=== PATIENT | female | born 1955 | race Caucasian/White ===

== ENCOUNTER 2024-01-20 10:04 | Outpatient (AMB) | payer MEDICARE, SELFPAY ==
--- NOTE | 2024-01-20 10:08 | MHC.OFFVIS ---
Vital Signs 01/20/24 10:12 Height 5 ft 3 in Weight 141 lb BMI 25.0 BP 159/77 H Blood Pressure Location Lt brachial Position Sitting Pulse 92 Pulse Source Pulse Oximeter Pulse Oximetry (%) 99 Oxygen Delivery Method Room Air Intake Visit Reasons: Lumbar Disc Disease Intake Note: Pain today 610 Screen Print Operator Required: Yes Screen Print Operator Language: Kenyan Screen Print Operator Services: Screen Print Operator Present Screen Print Operator Name: Provider speaks Kenyan. Accompanied by: Daughter Allergies No Known Allergies Allergy (Verified 01/20/24 10:12) HPI HPI Lumbar Disc Disease: Details: Patient is a very pleasant 68 years old Kenyan-speaking female with history of right-sided lumbar radiculopathy, scleroderma, arthritis, fatigue, facet arthropathy of lumbar spine, lumbar degenerative disc disease, right shoulder pain, chronic right hip pain, presents today for initial evaluation of right hip pain with radiation into right groin and right lower extremity. Denies any recent or past trauma, injury, or falls. [facility] and arthritis with cardiac, pulmonary, GI and musculoskeletal involvement and has been on long-term treatment with Humira, methotrexate and prednisone. Patient denies previous spine or hip surgery, reports history of right hip/GTB and right shoulder cortisone injections with minimal pain relief. Right hip pain has been progressively getting worse and is associated with locking and catching sensations especially when getting up or changing positions. She also has chronic low back pain and and thoracic pain with bony enlargements in her mid and lower thoracic and lower spine which patient attributes to scleroderma and arthritis. Low back pain radiates to right buttock and lateral hip with positive provocative testing for right sacroiliac joint pain. Patient recently completed lumbar spine MRI which we reviewed today and this is noted below. Right hip pain is worse upon getting up at night and morning which she rates at 10/10 and least severe in the afternoon after taking her medications. She denies any fever, chills, malaise, burning or paresthesia sensations, foot drop, bladder or bowel dysfunction, or saddle anesthesia. Reports right lower extremity episodic weakness due to right hip and groin pain. Patient also reports significant varicose veins in her lower extremities with pain and inflammation and is interested in vascular evaluation. She reports frequent cold sensation in her forefoot and toes with numbness and intermittent tingling sensations. Patient is concerned for systemic calcifications and requests comprehensive chemistry lab work including magnesium and calcium. Location: Right hip radiates into right groin and RLE anteriorly Duration: Chronic pain syndrome, hip pain worsening >3 months Characteristics of symptom or complaint: Stabbing, aching, cutting, tiring, spreading, radiating, sharp Aggravating or associated factors: Movement, standing up, getting up, changing positions, walking Relieving factors: Sitting, rest, Ibuprofen, Tylenol, lidocaine and diclofenac topicals Treatment: HEP, TENS unit, herbal/homeopathic therapies PFSH Medical History (Updated 01/20/24 @ 20:51 by SARA Agee) Arthritis Scleroderma GERD (gastroesophageal reflux disease) Hypertension Paroxysmal A-fib Lumbar disc disease Right lumbar radiculopathy Surgical History (Updated 01/20/24 @ 20:58 by SARA Agee) History of uterine suspension procedure (~2017) H/O: hysterectomy Social History Alcohol intake: never Patient Tobacco Use Status: Never used Tobacco Review of Systems Const All systems reviewed & are unremarkable except as noted in HPI and below Physical Exam Vital Signs: Last Vital Signs Pulse 92 01/20/24 10:12 BP 159/77 H 01/20/24 10:12 Pulse Ox 99 01/20/24 10:12 Oxygen Delivery Method Room Air 01/20/24 10:12 BMI result Body Mass Index 25.0 General: Appears afebrile. Alert and oriented. Mood and affect appropriate. Follows and participates in conversation appropriately. Respiratory effort is unlabored. No cough. Able to transition from sit to stand unassisted. Ambulates with bilaterally normal heel strike and toe off, reports RLE intermittent weakness due to right hip pain. General: Yes no CVA tenderness Back/Spine/Pelvis Other: Limited thoracolumbar ROM due to pain and arthritis. Bony enlargements noted midline mid-lower and lumbar spine. Lumbar extension and forward flexion reproduces [id number] pain. Demonstrates 5/5 left and 4/5 right strength of quadriceps bilaterally as well as flexion/dorsiflexion of bilateral feet against resistance. 2+ pedal pulses bilaterally. Seated straight leg rise with dorsiflexion negative bilaterally. Diminished patellar and achilles reflexes bilaterally. Facet loading test positive bilaterally. Jeison sign positive on the right, Osmany?s, Gaenslen, Pelvic compression and Stinchfield tests are positive on the right. Moderate right groin pain with I/E right hip rotations. +RASHEED and +FADIR tests with reproduction of moderate-severe right hip and right groin pain. Valsalva maneuver negative. Back: no CVA tenderness Cervical Spine: cervical ROM normal, cervical muscular tenderness and No Cervical spine tenderness Thoracic/Lumbar Spine: No Thoracic/lumbar spine scar(s), Lasegue's sign negative, straight leg raise negative bilaterally, pain with thoraco-lumbar ROM, paraspinal muscle tenderness, thoraco-lumbar ROM limited, thoracic spinal tenderness (mid thoracic) and lumbar spinal tenderness (L4-S1) Pelvis: buttock tenderness on the right and no sciatic notch tenderness Sacroiliac joints: on the right tender to palpation and on the left nontender Results Reviewed Results Reviewed: MR SPINE LUMBAR without CONTRAST 12/16/23 [facility] INDICATION: Right sided lumbar radiculopathy. FINDINGS: Normal lumbar alignment is demonstrated. Vertebral heights are well maintained. Bone marrow signal is within normal limits, and no suspicious osseous lesion is identified. Conus medullaris is unremarkable. Paraspinal soft tissues and visualized portions of the abdomen and pelvis are unremarkable. At L1-2 there is no significant disc herniation or protrusion. No central canal or neural foraminal stenosis is demonstrated. At L2-3 there is no significant disc herniation or protrusion. No central canal or neural foraminal stenosis is demonstrated. At L3-4 there is no significant disc herniation or protrusion. No central canal or neural foraminal stenosis is demonstrated. At L4-5 there is a small central disc bulge and bilateral facet hypertrophy. No central canal or neuroforaminal stenosis is demonstrated. At L5-S1 there is a small broad-based disc bulge and bilateral facet hypertrophy. No central canal or neural foraminal stenosis is demonstrated. IMPRESSION: At L4-5 and L5-S1, there are small disc bulges and bilateral facet hypertrophy, but no significant central canal stenosis or nerve root compromise at these or at any level. CT SCAN OF THE CHEST WITH CONTRAST 06/21/2008 [facility] CLINICAL HISTORY: Scleroderma rule out pulmonary pathology. IMPRESSION: Mildly increased basilar interstitial lung markings and small parenchymal nodules as described many of which are pleural based. Findings would be consistent with the clinical history of scleroderma which is associated with interstitial fibrosis and can demonstrate micronodules as well. Short term interval follow-up examination in three months is recommended to reassess. Scan should also include a high resolution scan of the lung parenchyma. Moderate pericardial effusion. Left ventricular enlargement and left ventricular hypertrophy as described. Assessment & Plan Assessment & Plan (1) Right hip pain: Code(s): M25.551 - Pain in right hip Category: Medical (2) Calcific tendinitis of right hip: Code(s): M65.251 - Calcific tendinitis, right thigh Category: Medical (3) Thoracic back pain: Code(s): M54.6 - Pain in thoracic spine Category: Medical (4) Chronic pain syndrome: Code(s): G89.4 - Chronic pain syndrome Category: Medical (5) Varicose veins of lower extremity with inflammation, bilateral: Code(s): I83.11 - Varicose veins of right lower extremity with inflammation; I83.12 - Varicose veins of left lower extremity with inflammation Category: Medical Plan: Vascular Referral placed to Dr. Elizabeth's office for further evaluation and treatment. Plan Patient presents with right hip and groin pain consistent with osteoarthritis, calcific tendinitis and concern for labrum tear. Will proceed with right hip MRI to rule out labrum tear and assess degree of degenerative changes. Patient request open MRI-will sent it to [facility]. Thoracic spine imaging to assess degree of degenerative changes, any subluxation, listhesis, compression fractures or pars defects. Will send medical request to [facility] for most recent right hip x-ray. Patient reports previous right hip results are consistent with mild osteoarthritis and calcific tendinitis. We discussed formal physical therapy, analgesics and intra-articular steroid hip injections under fluoroscopy guidance. Lab work orders provided for comprehensive chemistry profile per patient request. All questions and concerns have been answered and patient and family agrees with the treatment plan. Follow-up for MRI/Xray results and sooner as needed. Orders: Orders Magnesium Today G89.4 - Chronic pain syndrome Calcium Today G89.4 - Chronic pain syndrome MR hip RT wo/w con Today M25.551 - Pain in right hip, M65.251 - Calcific tendinitis, right thigh XR thoracic spine 3V Today M54.6 - Pain in thoracic spine Comprehensive Met. Panel Today G89.4 - Chronic pain syndrome Referrals Vascular Surgery Referral I83.11 - Varicose veins of right lower extremity with inflammation, I83.12 - Varicose veins of left lower extremity with inflammation Coding Level of Care Code New Pt Level 4 (86267) Diagnoses Right hip pain M25.551 Calcific tendinitis of right hip M65.251 Thoracic back pain M54.6 Chronic pain syndrome G89.4 Varicose veins of lower extremity with inflammation, bilateral I83.11; I83.12
[2024-01-20 10:12] VITALS: BP 159/77; PULSE 92; O2SAT 99; BMI 25.0
== END 2024-01-20 11:22 | disposition home or self-care (01) ==
PROVIDERS: PCP Physician Assistant; Referring Provider Physician Assistant; Visit Provider Nurse Practitioner Family
DX: M25.551 Pain in right hip (principal); M65.251 Calcific tendinitis, right thigh; M54.6 Pain in thoracic spine; G89.4 Chronic pain syndrome; I83.11 Varicose veins of right lower extremity with inflammation; I83.12 Varicose veins of left lower extremity with inflammation
CPT/HCPCS: 99204

== ENCOUNTER 2024-01-20 10:04 | Outpatient (REF) | payer MEDICARE, SELFPAY ==
--- NOTE | ~2024-01-20 | XR_ITS ---
EXAMINATION: XR THORACIC SPINE CLINICAL INFORMATION: Back pain COMPARISON: None available. TECHNIQUE: 3 views of the thoracic spine were obtained. FINDINGS: Mild superior compression deformity of an upper thoracic vertebral body, possibly T6. This appears chronic. [id number] multilevel degenerative disc disease. Normal thoracic kyphosis and alignment. Extensive atherosclerotic calcifications of the aortic arch. XR/XR thoracic spine 3V IMPRESSION: Chronic appearing mild superior endplate fracture deformity of T6. Mild to moderate multilevel degenerative disc disease throughout the thoracic spine. Electronically signed by: Ramesh Norman MD 01/25/2024 02:03 PM EDT
[2024-01-20 12:48] LABS: Alanine Aminotransferase 19 U/L (0-31); Albumin Level 3.6 g/dL (3.5-5.0); Alkaline Phosphatase 73 U/L (39-117); Anion Gap 11 (12-20); Aspartate Amino Transferase 23 U/L (5-31); Bilirubin Total 0.6 mg/dL (0.0-1.0); Blood Urea Nitrogen 12 mg/dL (9-16); Calcium 9.3 mg/dL (8.4-10.2); Carbon Dioxide 28 mmol/L (22-29); Chloride 101 mmol/L (96-108); Estimated Glomerular Filt Rate > 60; Glucose Random 80 mg/dL (60-115); Magnesium 1.9 mg/dL (1.6-2.6); Potassium 3.8 mmol/L (3.3-5.1); Sodium 136 mmol/L (135-145); Total Protein 8.4 g/dL (6.5-8.0)
== END 2024-01-20 10:05 | disposition home or self-care (01) ==
LOC: HO.XRAY 10:04
PROVIDERS: PCP Physician Assistant; Referring Provider Physician Assistant; Visit Provider Nurse Practitioner Family
DX: G89.4 Chronic pain syndrome (principal); M54.6 Pain in thoracic spine; M25.551 Pain in right hip; M65.251 Calcific tendinitis, right thigh; I83.11 Varicose veins of right lower extremity with inflammation; I83.12 Varicose veins of left lower extremity with inflammation
CPT/HCPCS: 36415; 72072; 80053; 83735; 99202

== ENCOUNTER 2024-04-13 10:18 | Outpatient (AMB) | payer MEDICARE, SELFPAY ==
--- NOTE | 2024-04-13 10:20 | A.OFFVIS_ITS ---
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 States they started over 30 yrs ago. States she has itching, burning and has large clusters of VV that are hard. 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 Complaints include pain over varicosities, swelling of lower extremities, cramping, fatigue, and heaviness of the lower extremities. It has been affecting there daily activities including walking. It is noted more so in left leg. She reports it all began with the of her 2nd child nearly 45 years ago and has progressively gotten worse over the last year 2. Patient denies any previous venous surgery or injections. Patient denies any history of DVT/ PE. Patient denies any history of phlebitis. Trial of compression includes - [id number] but are quite painful for her. They now present for vascular evaluation regarding their varicose veins. [facility] Medical History Arthritis Scleroderma GERD (gastroesophageal reflux disease) Hypertension Paroxysmal A-fib Lumbar disc disease Right lumbar radiculopathy Surgical History History of uterine suspension procedure (~2017) H/O: hysterectomy Social History Alcohol intake: never Patient Tobacco Use Status: Never used Tobacco Review of Systems Const Reports as per HPI ENT Reports no additional complaints Card Denies chest pain, Denies chest pain at rest and Denies chest pain with activity Resp Denies chest congestion and Denies cough GI Reports no additional complaints Musc Details: pain over varicosities, aching of lower extremities, swelling, cramping, heaviness and tiredness, itching Denies abnormal gait Skin/Breast Reports pruritus and Denies wounds Neuro Reports no additional complaints and Denies abnormal gait Psych Denies no additional complaints Physical Exam Vital Signs: BMI result Body Mass Index 25.0 Const General: cooperative, healthy appearing and comfortable Orientation/consciousness: oriented to person, oriented to place and oriented to time Neck Carotids: no bruits Chest Chest palpation & inspection: normal inspection of the chest and normal palpation of entire chest wall Resp Effort & Inspection: normal respiratory effort and able to speak in complete sentences Cardio Rate: regular rate Heart sounds: S1 normal heart sound present and S2 normal heart sound present Peripheral pulses: Peripheral pulses 2+ throughout GI Inspection: Yes normal to inspection Skin Other: +2 edema, large rope-like varicosities greater than 4 mm bilateral calf CEAP Classification C4 - skin color changes Ep - Etiology Primary As - superficial veins P - reflux General skin exam: dry skin Neuro General: oriented to person, oriented to place and oriented to time Extrem Right lower extremity: full ROM, normal capillary refill and edema Left lower extremity: full ROM, normal capillary refill and edema Psych Mental Status: mental status grossly normal Assessment & Plan Assessment & Plan (1) Varicose veins of left lower extremity with inflammation: Code(s): I83.12 - Varicose veins of left lower extremity with inflammation Category: Medical Plan: In short, the patient has evidence of venous insufficiency. I have discussed the pathophysiology with the patient. In addition I have provided informational material regarding venous disease to the patient. We have discussed conservative measures including compression, elevation, and exercise. I have also provided a handout regarding appropriate use of compression stockings and where to purchase good compression stockings as well. I have taken the liberty of ordering venous insufficiency testing with the patient. They will follow up with me after testing. The patient had an opportunity to ask questions regarding the treatment plan. All questions were answered. Imaging studies, laboratory studies and physical exam results were discussed and reviewed in detail. No major barriers to understanding were identified. The patient expressed understanding and agreement with the above treatment plan. The patient is aware they should contact our office by phone for worsening of the current condition or the appearance of new symptoms. Thank you for allowing me to participate in the vascular care of this patient. If you have any questions or concerns regarding the treatment for the above condition please do not hesitate to contact me. The office telephone contact is [phone]. This note is constructed using voice recognition software. While every effort has been made to ensure accuracy, museum guide errors may have been included. Thank you for allowing me to participate in the care of your patient. Yours sincerely, Alexis Elizabeth MD, FACS, R.P.V.I. Orders: Orders US venous duplex LE BI 1 Week I83.12 - Varicose veins of left lower extremity with inflammation Coding Level of Care Code New Pt Level 4 (09167) Diagnoses Varicose veins of left lower extremity with inflammation I83.12
[2024-04-13 10:21] VITALS: BMI 25.0
== END 2024-04-13 10:54 | disposition home or self-care (01) ==
PROVIDERS: PCP Physician Assistant; Visit Provider Surgery Vascular Surgery
DX: I83.12 Varicose veins of left lower extremity with inflammation (principal)
CPT/HCPCS: 99204

== ENCOUNTER → 2024-04-13 10:18 | Outpatient (BNVA) | payer MEDICARE, SELFPAY | PROVIDERS: PCP Physician Assistant; Visit Provider Surgery Vascular Surgery | DX: I83.12 Varicose veins of left lower extremity with inflammation (principal) | CPT/HCPCS: 99202 ==

== ENCOUNTER 2024-05-11 10:11 | Outpatient (REF) | payer MEDICARE, SELFPAY ==
--- OUTSIDE RECORDS SUMMARY | 2024-05-11 10:17 | XMS_ITS | Continuity of Care Document ---
Author Organization [facility] Address [address] [facility] [place] [address]- Care Team Providers Care Rating Specialist Name Role Phone Christina España Primary Care Physician Encounter 04/27/24 - 05/04/24 [facility] [address], [address] [place] [address]- Attending Physician: Venancio DIAMOND MD, Antonio Admitting Physician: Venancio DIAMOND MD, Antonio Referring Physician: Venancio DIAMOND MD, Antonio Encounter Type: OutPatient One Time Allergies, Adverse Reactions, Alerts Substance Criticality Severity Reaction Reaction Severity Status Plaquenil Active Medications amLODIPine 5 mg oral tablet 0.5, By Mouth, Daily, # 30 tablet, Refills 0, Maintenance, 05/11/21 9:26:00 PM EST, Partial fill upon patient request if the prescription is for a schedule II opioid drug. Start Date: 05/11/21 Status: Ordered Quantity: 30.0 Unit: tablet Repeat number: 1 apixaban 5 mg oral tablet 1 tablet = 5 mg, By Mouth, 2 times a day, # 60 tablet, 6 Refills, Maintenance, 08/20/22 3:57:00 PM EDT, Tablet, [id number], Partial fill upon patient request if the prescription is for a schedule II opioid drug., 163, cm, 08/20/22 15:40:00 EDT, Height, 68.5, kg, 05/12/21 4:12:00 EST, Dry Weight Start Date: 08/20/22 Status: Ordered Quantity: 60.0 Unit: tablet Repeat number: 7 Estradiol 0 Refills, Maintenance, 06/21/23 4:13:00 PM EST, Partial fill upon patient request if the prescription is for a schedule II opioid drug. Start Date: 06/21/23 Status: Ordered Repeat number: 1 famotidine 20 mg oral tablet Refills 0, Maintenance, 06/21/23 4:13:00 PM EST, Partial fill upon patient request if the prescription is for a schedule II opioid drug. Start Date: 06/21/23 Status: Ordered Repeat number: 1 fluconazole 100 mg oral tablet 0 Refills, Maintenance, 06/21/23 4:12:00 PM EST, Partial fill upon patient request if the prescription is for a schedule II opioid drug. Start Date: 06/21/23 Status: Ordered Repeat number: 1 Humira = 40 mg, Subcutaneous Infusion, 0 Refills, Maintenance, 12/26/21 2:07:00 PM EDT, Partial fill upon patient request if the prescription is for a schedule II opioid drug. Start Date: 12/26/21 Status: Ordered Repeat number: 1 levoFLOXacin 500 mg oral tablet 1 tablet = 500 mg, By Mouth, Every 24 hours, # 10 tablet, 0 Refills, Maintenance, 04/13/24 11:23:00AM EST, Tablet, Partial fill upon patient request if the prescription is for a schedule II opioid drug. Start Date: 04/13/24 Stop Date: 04/23/24 Status: Ordered Quantity: 10.0 Unit: tablet Repeat number: 1 methotrexate 25 mg/mL injectable solution 0 Refills, Maintenance, 10/14/23 11:25:00 AM EDT, Partial fill upon patient request if the prescription is for a schedule II opioid drug. Start Date: 10/14/23 Status: Ordered Repeat number: 1 metoclopramide 5 mg oral tablet 0 Refills, Maintenance, 06/21/23 4:12:00 PM EST, Partial fill upon patient request if the prescription is for a schedule II opioid drug. Start Date: 06/21/23 Status: Ordered Repeat number: 1 metoprolol 25 mg oral tablet, extended release 25 mg, 1, tablet, By Mouth, Daily, Refills 0, Maintenance, 12/26/21 2:08:00 PM EDT, Partial fill uponpatient request if the prescription is for a schedule II opioid drug. Start Date: 12/26/21 Status: Ordered Repeat number: 1 Multivitamin By Mouth, Daily, 0 Refills, Maintenance, 06/24/11 3:07:17 PM EST Start Date: 06/24/11 Status: Ordered Repeat number: 1 pantoprazole 40 mg oral delayed release tablet 0 Refills, Maintenance, 06/21/23 4:11:00 PM EST Start Date: 06/21/23 Status: Ordered Repeat number: 1 predniSONE 2.5 mg oral tablet 1 tablet = 2.5 mg, By Mouth, Daily, in addition with the 5mg, 0 Refills, Maintenance, 11/05/22 10:29:00 AM EDT, Partial fill upon patient request if the prescription is for a schedule II opioid drug. Start Date: 11/05/22 Status: Ordered Repeat number: 1 predniSONE 5 mg oral tablet 1 tablet = 5 mg, By Mouth, Daily, with food or milk, # 30 tablet, 0 Refills, Maintenance, 05/11/21 9:27:00 PM EST, Tablet, Partial fill upon patient request if the prescription is for a schedule II opioid drug. Start Date: 05/11/21 Status: Ordered Quantity: 30.0 Unit: tablet Repeat number: 1 valACYclovir 500 mg oral tablet Refills 0, Maintenance, 06/21/23 4:12:00 PM EST, Partial fill upon patient request if the prescription is for a schedule II opioid drug. 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 Hyperlipidemia Confirmed Active Hypertension Confirmed Active Scleroderma Confirmed Active Results Radiology Reports * Exam Date Time Procedure Performing Provider Status 04/27/24 11:43 AM Dexa Bone Density (Axial) Kong Cat; Auth (Verified) Notes: (Dexa Bone Density (Axial)) Reason For Exam: M95.1 MENOPAUSAL, Z79.52 BONE LOSS DUE TO MEDS RESULT: Dexa Bone Density (Axial) Name:INDRA TATUM Age:69 years Sex:Female Ethnicity:White Date of :1955 Reason: M95.1 MENOPAUSAL, Z79.52 BONE LOSS DUE TO MEDS; Clinical Question(s): Other: Referring Provider:Raciel Craft III, MD Study:Dexa Bone Density (Axial) Bone Density: Region BMD T-Score Z-Score Classification AP Spine 0.879 -1.5 0.6 Osteopenia TOTAL HIP 0.645 -2.4 -0.9 Osteopenia FEM NECK 0.536 -2.8 -1.0 Osteoporosis 10-year Fracture Risk: Fracture Risk Not Reported: FRAX not reported because: Some T-score for Spine Total or Hip Total or Femoral Neck at or below -2.5 Prior hip or vertebral fracture Impression: The patient has osteoporosis as determined by WHO criteria. Based on the results of the patient's bone density assessment, the risk of future fracture increases approximately two fold for each 1.0 SD decrease in T-score. However, low BMD is not the only risk factor for a future fragility fracture. Other clinical risk factors for osteoporotic fracture should be considered in ascertaining this patient's future fracturerisk including the patient's age, previous osteoporotic (fragility) fracture, estrogen deficiency/hypogonadism, risk of falling, use of medications implicated in bone loss (glucocorticoids), family history of osteoporotic fracture, diseases and conditions associated with bone loss, low body weight,smoking, high bone turnover, etc. Combining low BMD and other clinical risk factors result in a more precise assessment of future fracture risk. Secondary causes for osteoporosis, such as osteomalacia, other metabolic bone disorders,and diseases and conditions that may contribute to accelerated bone loss may have to be considered depending on the clinical situation. A repeat bone density assessment should be considered in two years. WSN: [id number] Ordering Physician: Raciel Craft Dictated By: Gurinder Rivera Jr, MD Dictated Date/Time: 04/28/24 4:37 pm Reviewed By: Gurinder Rivera Jr, MD Signed By: Gurinder Rivera Jr, MD Signed Date/Time: 04/28/24 4:37 pm Transcribed By: GLADYS Transcribed Date/Time: 04/28/24 4:36 pm Social History Social History Type Response Smoking Status Never (less than 100 in lifetime) entered on: 03/14/20 Sex Sex Representation Female (finding) Patient Care team information Care Team Personnel Name: Christina España Position: [facility] Associate Professional Member Role: PCP Address: [address] [place] [address] Telecom: Name: Vicenta Rdz Position: [facility] Outreach Member Role: Lifetime Consulting Physician Care Team Related Persons Name: MANOLO PRADHAN Name: TANESHA TATUM Insurance Providers Guarantor name: INDRA TATUM Health Plan Information #: 1 Payer: [employer] PPO [employer] Member Number: [id number] Policy Number: NA Group Number: [id number] Health Plan Information #: 2 Payer: [employer] PPO [employer] Member Number: [id number] Policy Number: NA Group Number: [id number]
== END 2024-05-11 10:12 | disposition home or self-care (01) ==
LOC: HO.US 10:11
PROVIDERS: PCP Physician Assistant; Visit Provider Surgery Vascular Surgery
DX: I83.12 Varicose veins of left lower extremity with inflammation (principal)
CPT/HCPCS: 93970

== ENCOUNTER 2024-06-01 10:15 | Outpatient (AMB) | payer MEDICARE, SELFPAY ==
[2024-06-01 10:23] VITALS: BMI 25.0
--- NOTE | 2024-06-01 10:23 | A.OFFVIS_ITS ---
Vital Signs 06/01/24 10:23 Height 5 ft 3 in Weight 141 lb BMI 25.0 Intake Visit Reasons: follow up s/p US 05/11/24 Intake Note: follow up US 05/11/24, pt states both legs are painful but Left LE is worse than Right per pt. She has had large rope like VV for over 30 yrs. 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 She presents with her daughter at bedside. She reports significantly swollen painful varicosities down bilateral legs mostly in the calf. She does report that right is greater than left. Of note she has been compliant with her compression with minimal relief. She now presents for follow-up with venous insufficiency testing. [facility] Medical History Arthritis Scleroderma GERD (gastroesophageal reflux disease) Hypertension Paroxysmal A-fib Lumbar disc disease Right lumbar radiculopathy Surgical History History of uterine suspension procedure (~2016) H/O: hysterectomy Social History Alcohol intake: never Patient Tobacco Use Status: Never used Tobacco Review of Systems Const Reports as per HPI ENT Reports no additional complaints Card Denies chest pain, Denies chest pain at rest and Denies chest pain with activity Resp Denies chest congestion and Denies cough GI Reports no additional complaints Musc Details: pain over varicosities, aching of lower extremities, swelling, cramping, heaviness and tiredness, itching Denies abnormal gait Skin/Breast Reports pruritus and Denies wounds Neuro Reports no additional complaints and Denies abnormal gait Psych Denies no additional complaints Physical Exam Vital Signs: BMI result Body Mass Index 25.0 Const General: cooperative, healthy appearing and comfortable Orientation/consciousness: oriented to person, oriented to place and oriented to time Neck Carotids: no bruits Chest Chest palpation & inspection: normal inspection of the chest and normal palpation of entire chest wall Resp Effort & Inspection: normal respiratory effort and able to speak in complete sentences Cardio Rate: regular rate Heart sounds: S1 normal heart sound present and S2 normal heart sound present Peripheral pulses: Peripheral pulses 2+ throughout GI Inspection: Yes normal to inspection Skin Other: +2 edema, large rope-like varicosities greater than 4 mm bilateral calf CEAP Classification C4 - skin color changes Ep - Etiology Primary As - superficial veins P - reflux General skin exam: dry skin Neuro General: oriented to person, oriented to place and oriented to time Extrem Right lower extremity: full ROM, normal capillary refill and edema Left lower extremity: full ROM, normal capillary refill and edema Psych Mental Status: mental status grossly normal Results Reviewed Results Reviewed: Brief summary of venous insufficiency testing is as follows: right great saphenous vein: Positive right small saphenous vein: negative right accessory vein: none present left great saphenous vein: Positive left small saphenous vein: negative left accessory vein: none present Please note there is no evidence of any venous aneurysms or significant tortuosity Assessment & Plan Assessment & Plan (1) Varicose veins of right lower extremity with inflammation: Code(s): I83.11 - Varicose veins of right lower extremity with inflammation Category: Medical Plan: This patient has varicose veins with inflammation. They continue to be a source of discomfort for the patient. The patient has tried conservative treatment with compression, leg elevation and exercise program for over 3 months time. They have been compliant with all treatment. This has provided minimal relief for the patient. I do not anticipate this course of treatment will alter the underlying etiology. The patient has been scheduled for lower extremity venous treatment inclusive of --- right great saphenous vein radiofrequency ablation. Risks, benefits, and complications of this procedure has been discussed in detail with the patient including but not limited to bleeding, infection, and the development of a DVT. The patient has demonstrated a clear understanding and has consented. We will schedule the patient as soon as possible. Thank you for allowing us to participate in this patient's care. If there are any questions or concerns please do not hesitate to contact us. Coding Level of Care Code Est Pt Level 4 (05126) Diagnoses Varicose veins of right lower extremity with inflammation I83.11
== END 2024-06-01 10:54 | disposition home or self-care (01) ==
PROVIDERS: PCP Physician Assistant; Visit Provider Surgery Vascular Surgery
DX: I83.11 Varicose veins of right lower extremity with inflammation (principal)
CPT/HCPCS: 99214

== ENCOUNTER → 2024-06-01 10:15 | Outpatient (BNVA) | payer MEDICARE, SELFPAY | PROVIDERS: PCP Physician Assistant; Visit Provider Surgery Vascular Surgery | DX: I83.11 Varicose veins of right lower extremity with inflammation (principal) | CPT/HCPCS: 99212 ==

== ENCOUNTER 2024-07-07 08:58 | Outpatient (AMB) | payer MEDICARE, SELFPAY ==
--- OUTSIDE RECORDS SUMMARY | 2024-07-07 09:21 | XMS_ITS | Clinical Summary ---
Author Organization [facility] ity Address [address] [place] [address] Care Team Providers Care Clinique Counter Manager Name Role Phone Gabriel Oliver Primary Care Provider [phone] Medications pantoprazole (PROTONIX) 40 mg EC tablet TAKE 1 TABLET BY MOUTH DAILY 30 tablet 1 04/30/2024 Active famotidine (PEPCID) 20 mg tablet Take 1 tablet (20 mg total) by mouth 1 (one) time each day. at bedtime. 90 tablet 3 05/01/2024 Active Encounters Date Type Department Care Team Description 05/01/2024 Telephone Gastroenterology - [place] [address] [facility] [address] [facility] [address] [place] [address] Alycia Maynard PA Med Change Request from Last 3 Months Social History Tobacco Use Types Packs/Day Years Used Date Smoking Tobacco: Never Smokeless Tobacco: Never Alcohol Use Standard Drinks/Week Comments Never 0 (1 standard drink = 0.6 oz pur e alcohol) Comments Unknown Sex and Gender Information Value Date Recorded Sex Assigned at Not on file Legal Sex Female 8:20 AM EST Gender Identity Not on file Sexual Orientation Not on file Obstetrics History Last Filed Vital Signs Vital Sign Reading Time Taken Comments Blood Pressure 136/62 11/11/2023 9:01 AM EDT Sit ting L Arm Pulse 59 11/11/2023 9:01 AM EDT Temperature - - Respiratory Rate - - Oxygen Saturation - - Inhaled Oxygen Concentration - - Weight 65.3 kg (144 lb) 11/11/2023 9:01 AM EDT Height 160 cm (5' 3 ) 11/11/2023 9:01 AM EDT Body Mass Index 25.51 11/11/2023 9:01 AM EDT Plan of Treatment Health Maintenance Due Date Last Done Comments COVID-19 Vaccine (#1) 1959 DTaP,Tdap,and Td Vaccines (1 - Tdap) 1973 Pneumococcal Vaccine: 50+ Ye ars (1 of 1 - PCV) 2004 Zoster Vaccines (1 of 2) 2004 Colorectal Cancer Screening: Colonoscopy 05/02/2022 Depression Screening 05/02/2022 Falls Risk Assessment 05/02/2022 Hepatitis C Screening 05/02/2022 Osteoporosis Screening (Bone Density Screening) 05/02/2022 Social Influencers of Health Screening 05/02/2022 Influenza Vaccine (#1) 2024 Breast Cancer Screening 04/20/2025 04/20/2023 RSV Immunization Patients 60 + Years Old (1 - 1-dose 75+ series) 2029 HIB Vaccines Aged Out No longer eligi ble based on patient's age to complete this topic HPV Vaccines Aged Out No longer eligi ble based on patient's age to complete this topic Hepatitis A Vaccines Aged Out No long er eligible based on patient's age to complete this topic Hepatitis B Vaccines Aged Out No long er eligible based on patient's age to complete this topic IPV Vaccines Aged Out No longer eligi ble based on patient's age to complete this topic MMR Vaccines Aged Out No longer eligi ble based on patient's age to complete this topic Meningococcal ACWY Vaccine Aged Out N o longer eligible based on patient's age to complete this topic Meningococcal B Vacine Aged Out No lo nger eligible based on patient's age to complete this topic RSV Immunization Patients Un magi 20 months Aged Out No longer eligible b ased on patient's age to complete this topic Varicella Vaccines Aged Out No longer eligible based on patient's age to complete this topic Procedures Procedure Name Priority Date/Time Associated Diagnosis Comments JANAY SCREENING DIGITAL Routine 04/20/2023 9:16 AM EST Encounter for screening mammogram for malignant neoplasm of breast from Last 3 Months or Most Recently Relevant to Health Maintenance Results * JANAY SCREENING DIGITAL (04/20/2023 9:16 AM EST) Anatomical Region Laterality Modality Mammography 04/16/2023 1:13 PM EST Narrative 04/20/2023 9:16 AM EST [facility] Diagnostic Imaging Department [address] [place] [address] Patient: ??INDRA TATUM ?/Age/Sex: 1955 - Unit#: ??[id number] ? Location/Status: ??SPDIMAM/REG CLI ? Mnemonic/Ordering Site: ??DIGSC/SPMAM Ordering Physician: ??GABRIEL OLIVER [facility] Screening Digital - 04/16/23 - 1329 Report Status:Signed EXAM: [facility] Screening Digital EXAM DATE AND TIME: 04/16/2023 1:30 PM HISTORY: ??Annual screening COMPARISON: ??11/30/2019, 11/10/2012 TECHNIQUE: Bilateral digital breast tomosynthesis was performed in the CC and MLO projections. Computer aided detection with Clzby 3D 3.1 was employed. TISSUE DENSITY: b. There are scattered areas of fibroglandular density. FINDINGS: No suspicious masses, grouped microcalcifications, or areas of architectural distortion are seen. The skin and vascularity are unremarkable. IMPRESSION: Stable mammographic appearance of the breasts. ??No evidence of malignancy is seen. A negative mammogram in the presence of a clinically suspicious palpable abnormality does not preclude the possibility of malignancy or alter the indications for biopsy. BI-RADS: ??Category 1: Negative RECOMMENDATION(S): 1: Routine screening mammogram BILATERAL in 1 year. 3341F, 7007F Dictating Physician: ??CARMELINA MEZA MD Electronically Signed by: ??CARMELINA MEZA MD Dic Date/Time: ??04/20/23913 Sign date/Time: ??04/20/23915 Procedure Note Carmelina Meza MD - 06/29/2023 [facility] Diagnostic Imaging Department [address] [place] [address] Patient: INDRA TATUM /Age/Sex: 1955 - 68 - F Unit#: [id number] Location/Status: [facility] CLI Mnemonic/Ordering Site: [facility] Ordering Physician: GABRIEL OLIVER [facility] Screening Digital - 04/16/23 - 1329 Report Status:Signed EXAM: [facility] Screening Digital EXAM DATE AND TIME: 04/16/2023 1:30 PM HISTORY: Annual screening COMPARISON: 11/30/2019, 11/10/2012 TECHNIQUE: Bilateral digital breast tomosynthesis was performed in the CCand MLO projections. Computer aided detection with iCAD Valuation App 3D 3.1was employed. TISSUE DENSITY: b. There are scattered areas of fibroglandular density. FINDINGS: No suspicious masses, grouped microcalcifications, or areas ofarchitectural distortion are seen. The skin and vascularity are unremarkable. IMPRESSION: Stable mammographic appearance of the breasts. No evidence of malignancyis seen. A negative mammogram in the presence of a clinically suspicious palpable abnormality does not preclude the possibility of malignancy or alter the indications for biopsy. BI-RADS: Category 1: Negative RECOMMENDATION(S): 1: Routine screening mammogram BILATERAL in 1 year. 3341F, 7025F Dictating Physician: CARMELINA MEZA MD Electronically Signed by: CARMELINA MEZA MD Dic Date/Time: 04/20/23913 Sign date/Time: 04/20/23915 Gabriel MOMIN IMG BI PROCEDURES Final Result from Last 3 Months or Most Recently Relevant to Health Maintenance Care Teams Clinique Counter Manager Relationship Specialty Start Date End Date Gabriel Oliver PA [address] [place] [address] PCP - General Internal Medicine 10/04/18
[2024-07-07 11:03] VITALS: BMI 25.0
--- NOTE | 2024-07-07 11:03 | A.OFFVIS_ITS ---
Vital Signs 07/07/24 11:03 Height 5 ft 3 in Weight 141 lb BMI 25.0 Intake Visit Reasons: Right RFA Landscape Foreman Required: No Accompanied by: Self / Same As Patient Allergies No Known Allergies Allergy (Verified 07/07/24 11:03) [facility] Medical History Arthritis Scleroderma GERD (gastroesophageal reflux disease) Hypertension Paroxysmal A-fib Lumbar disc disease Right lumbar radiculopathy Surgical History History of uterine suspension procedure (~2016) H/O: hysterectomy Social History Alcohol intake: never Patient Tobacco Use Status: Never used Tobacco Physical Exam Vital Signs: BMI result Body Mass Index 25.0 Office Procedures Vascular Office Procedure Details Details: Diagnosis: Varicose veins with inflammation of right leg Procedure: Endovenous radiofrequency ablation of the right great saphenous vein(s) of the lower extremity with Venclose RF ablation Anesthesia: Local infiltration 5 cc, Tumescent 400 cc. Physical Education Aide: Jessica MOMIN Estimated Blood Loss: Minimal The patient was transferred to the procedure suite and the insufficient saphenous vein was mapped by ultrasound and diagrammed on the overlying skin. The depth and diameter of the vein(s) to be treated was documented. The varicose tributary veins and suitable access sites were identified and mapped as well. The patient was then positioned supine on the procedure table. The affected limb was prepped and draped in the usual sterile fashion. The RF catheter was placed on the sterile field, flushed and wiped down, prepared, and connected by a sterile cable. The patient was placed in a supine position and local anesthesia was instilled in the skin overlying the access site. A skin incision was made overlying the identified and mapped great saphenous vein entry site. The vein was accessed using ultrasound guidance and the Seldinger technique, a guide wire was introduced through the needle, which was then exchanged over the guide wire for a 6F sheath, which was secured in place. The guide wire was removed and the sheath was flushed. The RF catheter was placed into the vein through the sheath and preferentially, imaging was used to place the catheter tip just inferior to the superficial epigastric vein to preserve normal physiological flow in that vein. Additionally, it was confirmed by ultrasound guidance that the catheter tip was also placed a minimum of 1.5cm distal to the saphenofemoral junction. After the RF catheter position was verified by ultrasound, tumescent anesthesia was infiltrated, under ultrasound guidance, precisely into the perivenous compartment along the entire length of vein from the entry site to the saphenofemoral junction until a halo of fluid was noted around the vein. The patient was appropriately position. After RF catheter position was again confirmed with ultrasound imaging, and under direct external compression along the length of the heating element, RF energy was applied. The vein was segmentally ablated by heating a 10 cm segment and then indexing the catheter forward by 9.5 cm until the treatment length is completed. Device temperature was maintained at 120 plus or minus 5 degrees C with an initial power level of 4W/cm dropping to below 2W/cm for each treatment. Total vein length treated 40 cm Total cycles of RF 6. Repeat ultrasound of the saphenous vein was performed, confirming successful treatment. The catheter and sheath were withdrawn and hemostasis established with direct pressure. After assuring hemostasis, the skin incision over the saphenous vein was closed with a steristip and a compression wrap was applied from the level of the foot to the most proximal level of the thigh. Discharge instructions were given to the patient inclusive of follow-up ultrasound and recommended follow-up with us. 73976 - Endovenous RF, 1st Vein All charges added?: Procedure code (CPT) selection complete Assessment & Plan Assessment & Plan (1) Varicose veins of right lower extremity with inflammation: Comment: 07/07/2024 - right great saphenous vein radiofrequency ablation Code(s): I83.11 - Varicose veins of right lower extremity with inflammation Category: Medical Plan: See op note Coding Level of Care Code Procedure Only Diagnoses Varicose veins of right lower extremity with inflammation I83.11 CPT Codes Details - Vascular 1: 95249 - Endovenous RF, 1st Vein ([id number])
== END 2024-07-07 11:04 | disposition home or self-care (01) ==
PROVIDERS: PCP Physician Assistant; Visit Provider Surgery Vascular Surgery
DX: I83.11 Varicose veins of right lower extremity with inflammation (principal)
CPT/HCPCS: 36475

== ENCOUNTER → 2024-07-07 08:58 | Outpatient (BNVA) | payer MEDICARE, SELFPAY | PROVIDERS: PCP Physician Assistant; Visit Provider Surgery Vascular Surgery | DX: I83.11 Varicose veins of right lower extremity with inflammation (principal) | CPT/HCPCS: 36475; J2003; J2004 ==

== ENCOUNTER 2024-07-20 09:47 | Outpatient (AMB) | payer MEDICARE, SELFPAY ==
[2024-07-20 09:52] VITALS: BMI 25.0
--- NOTE | 2024-07-20 09:52 | A.OFFVIS_ITS ---
Vital Signs 07/20/24 09:52 Height 5 ft 3 in Weight 141 lb BMI 25.0 Intake Visit Reasons: 2 week follow up s/p R RFA 07/07/24 Intake Note: 2 week follow up Right RFA 07/07/24, Pt states she is very happy with the results, swelling and pain have reduced greatly. STates she has the same issues on the left and would like to move forward with the Left LE. Accompanied by: Daughter Allergies No Known Allergies Allergy (Verified 07/20/24 09:57) [facility] HPI 2 week follow up s/p R RFA 07/07/24: Details: The patient is a 69-year-old female presenting with follow-up after her right great saphenous vein radiofrequency ablation. Post-procedural symptoms have resolved markedly, with significant improvement in swelling and pain previously present in the right leg. She describes the initial phase post-procedure as having swelling and a sensation of clotting, which have since subsided. Doing well postprocedure for right lower extremity The patient reports similar symptoms in her left leg, consistent with great saphenous vein insufficiency, and is considering intervention. She has a planned travel date for October 04, requiring scheduling of the procedure by August, allowing for sufficient recovery time. She continues to use compression with minimal relief. Now for eval of left lower extremity PFSH Medical History Arthritis Scleroderma GERD (gastroesophageal reflux disease) Hypertension Paroxysmal A-fib Lumbar disc disease Right lumbar radiculopathy Surgical History History of uterine suspension procedure (~2016) H/O: hysterectomy Social History Alcohol intake: never Patient Tobacco Use Status: Never used Tobacco Review of Systems Const Reports as per HPI ENT Reports no additional complaints Card Denies chest pain, Denies chest pain at rest and Denies chest pain with activity Resp Denies chest congestion and Denies cough GI Reports no additional complaints Musc Details: pain over varicosities, aching of lower extremities, swelling, cramping, heaviness and tiredness, itching Denies abnormal gait Skin/Breast Reports pruritus and Denies wounds Neuro Reports no additional complaints and Denies abnormal gait Psych Denies no additional complaints Physical Exam Vital Signs: BMI result Body Mass Index 25.0 Const General: cooperative, healthy appearing and comfortable Orientation/consciousness: oriented to person, oriented to place and oriented to time Neck Carotids: no bruits Chest Chest palpation & inspection: normal inspection of the chest and normal palpation of entire chest wall Resp Effort & Inspection: normal respiratory effort and able to speak in complete sentences Cardio Rate: regular rate Heart sounds: S1 normal heart sound present and S2 normal heart sound present Peripheral pulses: Peripheral pulses 2+ throughout GI Inspection: Yes normal to inspection Skin Other: +2 edema, large rope-like varicosities greater than 4 mm CEAP Classification C4 - skin color changes Ep - Etiology Primary As - superficial veins P - reflux General skin exam: dry skin Neuro General: oriented to person, oriented to place and oriented to time Extrem Right lower extremity: full ROM, normal capillary refill and edema Left lower extremity: full ROM, normal capillary refill and edema Psych Mental Status: mental status grossly normal Results Reviewed Results Reviewed: Brief summary of venous insufficiency testing is as follows: right great saphenous vein: Ablated right small saphenous vein: negative right accessory vein: none present left great saphenous vein: Positive left small saphenous vein: negative left accessory vein: none present Please note there is no evidence of any venous aneurysms or significant tortuosity Assessment & Plan Assessment & Plan (1) Varicose veins of left lower extremity with inflammation: Code(s): I83.12 - Varicose veins of left lower extremity with inflammation Category: Medical Plan: This patient has varicose veins with inflammation. They continue to be a source of discomfort for the patient. The patient has tried conservative treatment with compression, leg elevation and exercise program for over 3 months time. They have been compliant with all treatment. This has provided minimal relief for the patient. I do not anticipate this course of treatment will alter the underlying etiology. The patient has been scheduled for lower extremity venous treatment inclusive of --- left great saphenous vein radiofrequency ablation. Risks, benefits, and complications of this procedure has been discussed in detail with the patient including but not limited to bleeding, infection, and the development of a DVT. The patient has demonstrated a clear understanding and has consented. We will schedule the patient as soon as possible. Thank you for allowing us to participate in this patient's care. If there are any questions or concerns please do not hesitate to contact us. (2) Varicose veins of right lower extremity with inflammation: Comment: 07/07/2024 - right great saphenous vein radiofrequency ablation Code(s): I83.11 - Varicose veins of right lower extremity with inflammation Category: Medical Plan: Doing well Patient Instructions: - Contact our office to schedule the left leg procedure as discussed. - Expect procedure-related discomfort post-operatively, similar to right leg experience. - Wear compression stockings as instructed until the procedure. - Monitor for any signs of complication such as increased swelling or pain. - Notify the office if symptoms worsen before the scheduled procedure. Coding Level of Care Code Est Pt Level 4 (92840) Diagnoses Varicose veins of left lower extremity with inflammation I83.12 Varicose veins of right lower extremity with inflammation I83.11
--- OUTSIDE RECORDS SUMMARY | 2024-07-20 11:14 | XMS_ITS | Clinical Summary ---
Author Organization [facility] Address [address] [place] [address] Care Team Providers Care Cattle Sorter Name Role Phone Boni Christina YANG Primary Care Provider [phone] Source Comments PLEASE NOTE, if this patient is a minor, it may be UNLAWFUL to discuss sensitive information that is contained in these records (such as FAMILY PLANNING, MENTAL HEALTH or SUBSTANCE ABUSE) with the minor patient's parent or other person without the patient's specific authorization.[facility] Allergies No known active allergies Medications predniSONE (DELTASONE) 1 mg tabletIndications:C REST syndrome (HCC-CMS) Take 4 Tabs by mouth once daily. 120 Tab 6 01/11/20 13 Active predniSONE (DELTASONE) 5 mg tabletIndications:C REST syndrome (HCC-CMS) Take 1 Tab by mouth 2 (two) times daily. 60 Tab 4 09/26/19 16 Active esomeprazole magnesium (NEXIUM 24HR) 22.3 mg cpDRIndications:Ref lux esophagitis Take 22.3 mg by mouth 2 (two) times daily. 60 Cap 2 02/13/20 16 Active omeprazole (PRILOSEC) [address] capsuleIndications: Epigastric pain Take 1 Cap by mouth every morning before breakfast Do not crush or chew. 30 Cap 5 06/30/19 17 Active omeprazole (PRILOSEC) [address] capsule Take 20 mg by mouth 2 (two) times daily 1 03/12/20 18 Active amLODIPine (NORVASC) 2.5 mg tabletIndications:C REST syndrome (HCC-CMS) Take 1 Tab by mouth once daily 90 Tab 2 03/30/20 20 Active mupirocin (BACTROBAN) 2 % ointmentIndications :Left-sided epistaxis Apply topically nightly at bedtime 22 g 04/11/20 20 Active sodium chloride (OCEAN) 0.65 % nasal sprayIndications:Le ft-sided epistaxis Place 1 [place]reth into the nostril(s) as needed for congestion 44 mL 2 04/11/20 20 Active erythromycin (ROMYCIN) 5 mg/gram (0.5 %) ophthalmic ointment Place 0.5 Inches into both eyes nightly at bedtime 3.5 g 1 07/02/19 21 Active metoprolol succinate (TOPROL-XL) 25 mg 24 hr tabletIndications:P aroxysmal atrial fibrillation (HCC-CMS) Take 1 Tablet by mouth once daily 90 Tablet 2 11/22/19 22 Active miscellaneous medical supply miscIndications:CRE ST syndrome (HCC-CMS) by miscellaneous route once daily Miracle mouthwash 600 Each 3 11/22/19 22 Active ondansetron (ZOFRAN-ODT) 4 mg disintegrating tablet Take 1 Tablet by mouth every 8 (eight) hours as needed for nausea 30 Tablet 6 12/03/19 22 Active fluconazole (DIFLUCAN) 100 mg tabletIndications:O ral thrush 2 tabs po on day 1 then 1 tab po daily 6 7 Tablet 03/06/20 22 Active lansoprazole (PREVACID) [address] capsuleIndications: Dyspepsia TAKE 1 CAPSULE BY MOUTH TWICE DAILY 180 Capsule 1 05/13/20 22 Active fluconazole (DIFLUCAN) 200 mg tabletIndications:C andidiasis of mouth TAKE 1 TABLET BY MOUTH EVERY DAY FOR 14 DAYS 14 Tablet 06/23/19 23 Active adalimumab (HUMIRA,CF, PEN) 40 mg/0.4 mL pnkt 10/31/19 22 Active amLODIPine (NORVASC) 5 mg tabletIndications:C REST syndrome (HCC-CMS) Take 1 Tablet by mouth once daily 90 Tablet 3 09/10/19 23 Active valACYclovir (VALTREX) 1 gram tabletIndications:H erpes labialis Take 1 Tablet by mouth 2 (two) times daily 60 Tablet 5 03/19/20 23 Active amLODIPine (NORVASC) 5 mg tabletIndications:C REST syndrome (HCC-CMS) TAKE 1 TABLET BY MOUTH EVERY DAY 90 Tablet 3 08/06/19 24 Active lidocaine (LIDODERM) 5 % patchIndications:Ri ght lumbar radiculopathy,Lumba r disc disease Apply 1 patch to the affected area for a maximum of 12 hours, followed by removal for 12 hours. 30 Patch 4 12/01/19 24 Active ondansetron HCL (ZOFRAN) 4 mg tabletIndications:S almonella gastroenteritis Take 1 Tablet by mouth every 8 (eight) hours as needed for nausea 30 Tablet 4 04/26/20 24 Active apixaban (ELIQUIS) 5 mg tabIndications:Paro xysmal atrial fibrillation (HCC-CMS) Take 1 Tablet by mouth 2 (two) times daily Self pay 180 Tablet 1 04/26/20 24 Active Active Problems Problem Noted Date Diagnosed Date History of candidiasis 06/23/[address] scan of brain 11/17/2021 2 Atrial fibrillation (HCC-CMS) 09/202111/21/2021 Essential hypertension 06/22/2019 Herpes labialis 06/30/2018 Pulmonary nodules 12/16/2017 , CT chest 04/19/2019, repeat 07/20/2019 04/28/2018 Overview (03/05/2021): Result type: CT Chest W/O Contrast Result date: January 23, 2021 9:09 EDT Result status: Auth (Verified) Result title: CT Chest W/O Contrast Performed by: Elliott Motta MD on January 23, 2021 13:45 EDT Verified by: Makeda Nieves MD on January 23, 2021 13:50 EDT Encounter info: [id number], [facility] [place], One Time OP, 01/23/2021 - 01/23/2021 * Final Report * Reason For Exam Chronic Interstitial Lung Disease RESULT: CT Chest W/O Contrast CT Chest W/O Contrast HISTORY: Chronic interstitial lung disease. Long-standing scleroderma with myositis. PFT: SPIROMETRY: FEV1 1.75, 71%; FVC 2.30, 71%; FEV1/FVC 76.0%; PEFR 5.51, 92% Mild ventilatory defect, without obstruction. The vital capacity is reduced. Patient currently maintained on prednisone 5 mg daily and methotrexate 10 mg weekly with folic acid CLINICAL QUESTION: Progression? COMPARISON: CTA chest 12/16/2017. TECHNIQUE: Helical CT scan of the chest without IV contrast, formatted in 3 planes. Weight-based protocol was performed using automatic exposure control. CTDIvol Body: 6.07 mGy, DLP Body: 348 mGy*cm. FINDINGS: LINES AND TUBES: None. TRACHEA AND BRONCHI: Normal. LUNGS AND PLEURA: There is hazy groundglass opacity of the lower lobes, with associated traction bronchiolectasis, in keeping with fine fibrosis, similar to the prior study. Subpleural sparing is present. There are a few pulmonary nodules, some of which are partially calcified, all unchanged since prior study. The largest is a 7 mm solid nodule within the posterior basal right lower lobe (6:189). On expiration views, there is mild air trapping in keeping with small airways disease. There is a linear band of atelectasis/scarring in the anterior basal segment of right lower lobe. AORTA: Mild vascular calcification but no aneurysm. MEDIASTINUM and CHANDRIKA: Subcentimeter mediastinal and hilar lymph nodes, likely reactive. Patulous mid and distal esophagus filled with mucus. Main pulmonary artery measures 3 cm, upper limit of normal. HEART: Heart is normal in size. No pericardial effusion. CHEST WALL SOFT TISSUES: Normal. DIAPHRAGM AND UPPER ABDOMEN: Calcified granuloma in the liver. BONES: Normal. IMPRESSION: Mild fine pulmonary fibrosis at the lung bases, similar to prior study from 2018. 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 Mild obstructive small bowel airways disease is also present, at the lung bases. Patulous esophagus filled with mucous, also in keeping with scleroderma. No overt features of pulmonary hypertension. Main pulmonary artery measures 3 cm, upper limit of normal and similar to 2018. I have personally reviewed the images and I agree with this report. WSN: [id number] Ordering Physician: Meg Ibrahim Signature Line Dictated By: Elliott Motta MD Dictated Date/Time: 01/23/21 1:45 pm Reviewed By: Makeda Nieves MD Signed By: Makeda Nieves MD Signed Date/Time: 01/23/21 1:50 pm Transcribed By: GLADYS Transcribed Date/Time: 01/23/21 11:[address] Chest W/O Contrast This document has an image CT Chest W - 04/19/19 - 0924 INDICATION: Pulmonary nodule TECHNIQUE: CT scan of the chest was obtained with the administration of 90 Isovue 370 intravenous contrast media. Multiplanar reformatted images were obtained. Scanner: [employer] 64 slice VCT Dose reduction technique: ASIR (Adaptive statistical iterative reconstruction) and/or AEC (automated exposure control) Dose: total exam DLP 162 mGy-cm COMPARISON: No prior imaging available for comparison. FINDINGS: CHEST WALL: No focal abnormality is noted. LOWER NECK: The visualized portions of the thyroid gland are unremarkable. No lower cervical lymphadenopathy is identified. LYMPH NODES: No axillary adenopathy is present. There is noncalcified mediastinal adenopathy in the AP window and the pretracheal soft tissues measuring up to 1.2 cm. There is no hilar mass.. MEDIASTINUM: No mediastinal mass is noted. The heart is mildly enlarged. No pericardial effusion. No aneurysmal dilatation of the thoracic aorta is seen. There is atherosclerotic calcification of the coronaries and thoracic aorta. There is a patulous mid thoracic esophagus containing heterogeneous soft tissue attenuation the level of the aortic arch, consistent with reflux and elevating potential for aspiration. LUNGS/AIRWAYS: The trachea and central bronchi are widely patent. No focal confluent infiltrates are seen. No pleural effusion. There is no lobar consolidation. There are multiple pulmonary nodules, calcified and noncalcified these range in size from to millimeter to 4 mm. There is a 3 mm solid noncalcified nodule, series 603 image 9 within the left upper lobe. 2 mm nodules in the peripheral left upper lobe, series 603 image 13. C calcified nodule left upper lobe, series 603 image 17, calcified nodule series 603 image 21 left upper lobe. There are noncalcified pleural-based nodules in the left lower lobe measuring 3 mm, series 603 image 23. 4 mm nodule, left lower lobe pleural-based, series 603 image 28. Right upper lobe calcified nodule, series 603 image 12. Multiple tiny noncalcified pulmonary nodules, series 603 image 13 measuring 1 to 2 mm right upper lobe. Noncalcified small pulmonary nodules 2 mm right upper lobe, series 603 image 22. Pleural-Based solid nodule, 4 mm, series 603 image 24. 6 mm nodule right lower lobe pleural-based, series 603 image 26. 9 mm soft tissue nodule, right lower lobe, series 603 image 26. Solid nodule 6 mm, series 603 image 28 central lung parenchyma. UPPER ABDOMEN: Small hiatal hernia. Fatty infiltration of liver. No adrenal mass. The visualized portions of the upper abdomen are otherwise grossly unremarkable. OSSEOUS STRUCTURES: No suspicious osseous lesions are identified. There are degenerative changes of the thoracic spine. IMPRESSION: Lung RADS 4A: Probably Suspicious - 3 month LDCT; PET/CT may be used when there is a > or = 8 mm solid component. Code: 82951, G9637, G9557 Dictating Physician: SAMARA CENTENO MD Electronically Signed by: SAMARA CENTENO MD Dic Date/Time: 04/19/19 1032 Sign date/Time: 04/19/19 1052 History of vaginal prolapse s/p anterior colporrhaphy 05/201606/17/2016 History of echocardiogram , 06/09/2018: global hypokinesis, LVEF 50% 04/06/2016 Overview (04/06/2016): 2D ECHO with Color Flow Dopp - 03/12/16 - Requesting Physician dr plata Indication autoimmune heart disease Technical quality: Adequate Technique: M-mode, 2 D, color, continuous pulse wave Doppler. LEFT VENTRICLE: Left ventricular size: Normal. LV end diastolic dimension at 51mm Left ventricular function: Normal. There is no evidence of E to A reversal with no impaired LV relaxation The LV wall thickness is normal with LV posterior wall dimension in diastole is 10mm. The IV septum diastolic dimension is 10mm There is evidence of no concentric LVH Left ventricular ejection fraction is 65 % . No segmental wall motion abnormality noted. LEFT ATRIUM: Left atrium size is dilated at 43mm there is a possible intra-atrial septal abnormal motion RIGHT ATRIUM and RIGHT VENTRICLE: Right atrium is dilated in size. There is evidence of PFO with left to right shunt by color Doppler Right ventricle is normal in size and function. Right ventricular systolic pressure is 32 mmHg suggestive of no pulmonary HTN PERICARDIUM: Pericardium is grossly within normal limits. There is no evidence of pericardial effusion or tamponade. AORTA: Aortic root size is normal at 31mm VALVES:: 1. MITRAL valve: Is normal in anatomic appearance. There is evidence of mild mitral insufficiency. 2. AORTIC valve: Is normal in anatomic appearance. There is evidence of trace aortic insufficiency. The peak gradient is 6 mmHg and the mean gradient is 4 mmHg. There is no aortic stenosis 3. TRICUSPID valve: Is normal in anatomic appearance. There is evidence of trace tricuspid insufficiency. 4. PULMONIC valve: Is normal in anatomic appearance. There is evidence of no pulmonic insufficiency. IMPRESSION: 1. Normal left ventricular function. 2. Valvular abnormalities as described above. Dictating Physician: SHEMAR CHANDRA DO Electronically Signed by: SHEMAR CHANDRA DO Dic Date/Time: 03/12/16 1521 Sign date/Time: 03/12/16 1523 H/O endoscopy 12/[address] [facility] lj: GERD with 3 tiny peptic ulcers 02/13/2016 History of Helicobacter infection s/p treatment 01/10/2013 Reflux esophagitis on EGD 09/10/2011 01/10/2013 H/O colonoscopy 08/201101/10/2013 CREST syndrome/scleroderma/polymyositis S/P partial hysterectomy due to fibroid 1995 Resolved Problems Problem Noted Date Diagnosed Date Resolved Date COVID-19 09/06/2019 12/07/2019 2 Overview (12/07/2019): No official testing Encounters Date Type Department Care Team Description 04/26/2024 9:20 AM EST Office Visit [address] [phone] Christina Plata PA-C Salmonella gastroenteritis (Primary Dx); Paroxysmal atrial fibrillation (HCC-CMS) 04/26/2024 Travel from Last 3 Months Immunizations Name Administration Dates Next Due Hep B, Adult/Adol (ENERGIX/RECOMBIVAX) 3,12/16/2011,11/12/2011 PNEUMOCOCCAL CONJUGATE PCV 13 04/29/2011 PPD 11/16/2011 TDAP 11/12/2011 ZOSTER VACCINE, RECOMBINANT (SHINGRIX) 0,06/30/2018 Social History Tobacco Use Types Packs/Day Years Used Date Smoking Tobacco: Never Smokeless Tobacco: Never Tobacco Cessation:Counseling Given: Not Answered Alcohol Use Standard Drinks/Week Comments No 0 (1 standard drink = 0.6 oz pur e alcohol) Social Connections Answer Date Recorded Connectedness 1 12/01/2023 Financial Resource Strain Answer Date R ecorded Financial Resource Strain 1 2023 Stress Answer Date Recorded Stress 1 12/01/2023 Physical Activity Answer Date Recorded Physical Activity 0 01/14/2019 Food Insecurity Answer Date Recorded Food 1 12/01/2023 Transportation Needs Answer Date Record ed Transportation 1 12/01/2023 Housing Stability Answer Date Recorded Housing 1 12/01/2023 Safety and Environment Answer Date Herminio rded Safety 0 01/14/2019 Utilities Answer Date Recorded Utilities 1 12/01/2023 Employment Answer Date Recorded Stress 0 12/01/2023 Comments No Sex and Gender Information Value Date Recorded Sex Assigned at Female 05/02/2018 7:12 PM PST Legal Sex Female 11:36 AM PDT Gender Identity Female 05/02/2018 7:12 PM PST Sexual Orientation Straight 05/02/2018 7: 12 PM PST Last Filed Vital Signs Vital Sign Reading Time Taken Comments Blood Pressure 134/60 04/26/2024 9:02 AM EST initial BP 162/60 Pulse 68 06/23/2022 1:28 PM EST Temperature 36.7 ??C (98 ??F) 12/01/2023 9:0 5 AM EDT Respiratory Rate 16 04/26/2024 9:02 AM EST Oxygen Saturation 98% 01/03/2015 10: 37 AM EDT Inhaled Oxygen Concentration - - Weight 65.3 kg (144 lb) 04/26/2024 9:02 AM EST Height 165.1 cm (5' 5 ) 04/26/2024 9:02 AM EST Body Mass Index 23.96 04/26/2024 9:02 AM EST Plan of Treatment Health Maintenance Due Date Last Done Comments Alcohol and Drug Screen 05/24/2024 12/01/19, 06/23/2022, 03/06/2022, Additional history exists Depression Annual Screen 05/24/2024 12/01/2023, 12/22 Bone Density Screening 07/25/2024 Postp oned from 2019 (Patient postponement) Imm-DTaP/Tdap/Td (2 - Td or Tdap) 07/25/2024 11/12/2011 Postponed from 11/11/2021 (Patient postponement) Imm-Pneumococcal 65+ (2 of 2 - PPSV23) 07/25/2024 04/29/2011 Postponed from 06/24/2011 (Patient postponement) Medicare Annual Wellness Visit 11/30/2024 12/01/2023, 03/06/2022, 04/28/2018, Additional history exists Breast Cancer Screening (Mammogram) 04/16/2025 04/16/2023, 01/03/2015 (Managed by Outside Provider) Falls Prevention 04/26/2025 04/26/2024 (Man aged by Outside Provider) Tobacco Screening 04/26/2025 04/26/2024 Diabetes Screening 04/01/2026 04/01/2023, 1 , 03/30/2019, Additional history exists Lipid Screening 04/01/2026 04/01/2023, 02/21, 03/30/2019 Imm-Hepatitis B Completed 06/01/2012, 11/22, 11/12/2011 Imm-Zoster, Recombinant Completed 03/28/2020, 06/30 Hepatitis C Screening Completed 03/06/2022 [id number] Discontinued Imm-Influenza Discontinued Goals Goal Patient Goal Type Associated Problems Recent Progress Patient-Stated? Author Blood Pressure < 140/90 Blood Pressure Essential hypertension 134/60(2023 9:02 AM EST) No Jacob Webber, PharmD Procedures Procedure Name Priority Date/Time Associated Diagnosis Comments REFERRAL SCANNED DOCUMENT 07/07/2024 3:00 AM EST REFERRAL SCANNED DOCUMENT 06/08/2024 3:00 AM EST REFERRAL SCANNED DOCUMENT 06/01/2024 3:00 AM EST IMAGING SCANNED DOCUMENT 05/11/2024 3:00 AM EST IMAGING SCANNED DOCUMENT 05/11/2024 3:00 AM EST MAMMO DIGITAL SCREEN PRAVEEN W CAD 3D Routine 04/16/2023 3:00 AM EST Breast cancer screening by mammogram COMPREHENSIVE METABOLIC PANEL Routine 04/01/2023 10:40 AM EST Breast cancer screening by mammogram Pulmonary nodules 12/16/2017, CT chest 04/19/2019, repeat 07/20/2019 CREST syndrome/scleroderma/ polymyositis Herpes labialis Paroxysmal atrial fibrillation (HCC-CMS) Essential hypertension Lower urinary tract symptoms (LUTS) LIPID PANEL Routine 04/01/2023 10:40 AM EST Breast cancer screening by mammogram Pulmonary nodules 12/16/2017, CT chest 04/19/2019, repeat 07/20/2019 CREST syndrome/scleroderma/ polymyositis Herpes labialis Paroxysmal atrial fibrillation (HCC-CMS) Essential hypertension Lower urinary tract symptoms (LUTS) HEPATITIS C AB W/RFLX HCV RNA, QT, RT PCR Routine 03/06/2022 9:32 AM EDT Paroxysmal atrial fibrillation (HCC-CMS) Oral thrush Essential hypertension Gastroesophageal reflux disease with esophagitis without hemorrhage Peripheral polyneuropathy from Last 3 Months or Most Recently Relevant to Health Maintenance Results * REFERRAL SCANNED DOCUMENT (07/07/2024 3:00 AM EST) Only the most recent of3 resultswithin the time period is included. 07/07/2024 3:00 AM EST Christina Plata PA-C SCAN REFERRAL Final Result * IMAGING SCANNED DOCUMENT (05/11/2024 3:00 AM EST) Only the most recent of2 resultswithin the time period is included. 05/11/2024 3:00 AM EST Christina Plata PA-C SCAN IMAGING Final Result * MAMMO DIGITAL SCREEN PRAVEEN W CAD 3D (04/16/2023 3:00 AM EST) 04/16/2023 3:00 AM EST Christina Plata PA-C IMG MAMMO Edited Resul t - Final [facility] Corporate Office [address], [address] [place] [address], * (ABNORMAL) LIPID PANEL (04/01/2023 10:40 AM EST) CHOLESTEROL, TOTAL 109 <200 mg/dL [facility] HDL CHOLESTEROL 42(L) > OR = 50 mg/dL [facility] TRIGLYCERIDES 93 <150 mg/dL [facility] LDL-CHOLESTEROL 49 99 mg/dL (calc) [facility] Comment: Reference range: <100 Desirable range <100 mg/dL for primary prevention; ?? <70 mg/dL for patients with CHD or diabetic patients with > or = 2 CHD risk factors. LDL-C is now calculated using the Audrey calculation, which is a validated novel method providing better accuracy than the Friedewald equation in the estimation of LDL-C. Jose De Jesus SS et al. CECIL. 2013;310(19): 1516-7711 (http://education.TV Volume Wizard App/faq/BGB409) CHOL/HDLC RATIO 2.6 <5.0 (calc) [facility] NON-HDL CHOLESTEROL 67 <130 mg/dL (calc) [facility] Comment: For patients with diabetes plus 1 major ASCVD risk factor, treating to a non-HDL-C goal of <100 mg/dL (LDL-C of <70 mg/dL) is considered a therapeutic option. Blood Blood / Unknown 04/01/2023 1 0:40 AM EST 04/01/2023 10:40 AM EST Narrative [facility] - 04/04/2023 5:11 PM EST FASTING:YES Christina Plata PA-C LAB - BLOOD DRAW Final Resul t [facility] [address] [place] [id number], [facility] [address] [place] [phone] * (ABNORMAL) COMPREHENSIVE METABOLIC PANEL (04/01/2023 10:40 AM EST) GLUCOSE 93 65 - 99 mg/dL [facility] Comment: ?Fasting reference interval UREA NITROGEN (BUN) 15 7 - 25 mg/dL [facility] CREATININE (blood) 0.58 0.50 - 1.05 mg/dL [facility] EGFR 98 > OR = 60 mL/min/1. 73m2 [facility] BUN/CREATININE RATIO SEE NOTE: [facility] Comment: ?? Not Reported: BUN and Creatinine are within ?? reference range. ? SODIUM 132(L) 135 - 146 mmol/L [facility] POTASSIUM 3.6 3.5 - 5.3 mmol/L [facility] CHLORIDE 99 98 - 110 mmol/L [facility] CARBON DIOXIDE 26 20 - 32 mmol/L [facility] CALCIUM 9.2 8.6 - 10.4 mg/dL [facility] PROTEIN, TOTAL 8.9(H) 6.1 - 8.1 g/dL [facility] ALBUMIN 3.7 3.6 - 5.1 g/dL [facility] GLOBULIN 5.2(H) 1.9 - 3.7 g/dL (calc) [facility] ALBUMIN/GLOBULI N RATIO 0.7(L) 1.0 - 2.5 (calc) [facility] BILIRUBIN, TOTAL 0.5 0.2 - 1.2 mg/dL [facility] ALKALINE PHOSPHATASE 49 37 - 153 U/L [facility] AST 23 10 - 35 U/L [facility] ALT 12 6 - 29 U/L [facility] Blood Blood / Unknown 04/01/2023 1 0:40 AM EST 04/01/2023 10:40 AM EST Narrative [facility] [employer] [facility] - 04/04/2023 5:11 PM EST FASTING:YES us Christina Plata PA-C LAB - BLOOD DRAW Edited Resu lt - Final [facility] [employer] ([facility] [address] [address], [facility] [address] [phone] * HEPATITIS C AB W/RFLX HCV RNA, QT, RT PCR (03/06/2022 9:32 AM EDT) HEPATITIS C ANTIBODY NON-REACT RAVEN NON-REACT RAVEN [facility] SIGNAL TO CUT-OFF 0.36 <1.00 [facility] Comment: HCV antibody was non-reactive. There is no laboratory evidence of HCV infection. In most cases, no further action is required. However, if recent HCV exposure is suspected, a test for HCV RNA (test code 18877) is suggested. For additional information please refer to http://education.BigEvidence.[place]uqua/faq/EPY49c0 (This link is being provided for informational/ educational purposes only.) Blood Blood / Unknown 03/06/2022 9 :32 AM EDT 03/06/2022 9:33 AM EDT Christina Plata PA-C LAB - BLOOD DRAW Edited Resu lt - Final [facility] [address] [facility] [address] [place] [address], [facility] [address] [address] from Last 3 Months or Most Recently Relevant to Health Maintenance Insurance [employer] MEDICARE COMPLETE CHO Care Teams Cattle Sorter Relationship Specialty Start Date End Date Christina Plata PA-C [address] [place] [address] PCP - General 01/10/13
--- OUTSIDE RECORDS SUMMARY | 2024-07-20 11:14 | XMS_ITS | Clinical Summary ---
Author Organization [facility] ity Address [address] [place] [address] Care Team Providers Care Office Machines Wirer Name Role Phone Gabriel Oliver Primary Care Provider [phone] Medications pantoprazole (PROTONIX) 40 mg EC tablet TAKE 1 TABLET BY MOUTH DAILY 30 tablet 1 04/30/2024 Active famotidine (PEPCID) 20 mg tablet Take 1 tablet (20 mg total) by mouth 1 (one) time each day. at bedtime. 90 tablet 3 05/01/2024 Active Encounters Date Type Department Care Team Description 05/01/2024 Telephone Gastroenterology - [place] 175 [facility] 175 [facility] [address] [place] [address] Alycia Maynard PA Med Change [...] PM EST Narrative 04/20/2023 9:16 AM EST [facility] Diagnostic Imaging Department [address] [place] [address] Patient: ??INDRA TATUM ?/Age/Sex: 1955 - Unit#: ??[id number] ? Location/Status: ??SPDIMAM/REG CLI ? Mnemonic/Ordering Site: ??DIGSC/SPMAM Ordering Physician: ??GABRIEL OLIVER [facility] Screening Digital - 04/16/23 - 1329 Report Status:Signed EXAM: [facility] Screening Digital EXAM DATE AND TIME: 04/16/2023 1:30 PM HISTORY: ??Annual screening COMPARISON: ??11/30/2019, 11/10/2012 TECHNIQUE: Bilateral digital breast tomosynthesis was performed in the CC and MLO projections. Computer aided detection with [employer] 3D 3.1 was employed. TISSUE DENSITY: b. [...] screening mammogram BILATERAL in 1 year. 3341F, 7084F Dictating Physician: ??CARMELINA MEZA MD Electronically Signed by: ??CARMELINA MEZA MD Dic Date/Time: ??04/20/23913 Sign date/Time: ??04/20/23915 Procedure Note Carmelina Meza MD - 06/29/2023 [facility] Diagnostic Imaging Department [address] [place] [address] Patient: INDRA TATUM /Age/Sex: 1955 - 68 - F Unit#: [id number] Location/Status: [facility] CLI Mnemonic/Ordering Site: [facility] Ordering Physician: GABRIEL OLIVER [facility] Screening Digital - 04/16/23 - 1329 Report Status:Signed EXAM: [facility] Screening Digital EXAM DATE AND TIME: 04/16/2023 1:30 PM HISTORY: Annual screening COMPARISON: 11/30/2019, 11/10/2012 TECHNIQUE: Bilateral digital breast tomosynthesis was performed in the CCand MLO projections. Computer aided detection with [employer] 3D 3.1was employed. TISSUE DENSITY: b. There [...] Recently Relevant to Health Maintenance Care Teams Office Machines Wirer Relationship Specialty Start Date End Date Gabriel Oliver PA [address] [place] [address] PCP - General Internal Medicine 10/04/18
--- OUTSIDE RECORDS SUMMARY | 2024-07-20 11:14 | XMS_ITS | Data Portability ---
Author Organization JENNIFER DALE MD [facility], Main Office Address [address] [place] [address] Assessment Encounter Date Assessment Date Assessment LastModified by Organization Details LastModified Time 03/16/2023 03/16/2023 Telemedicine. Pt home with daughter. phone/audio. 17 min. [email or web address] Not available 03/16/2023 09:38:05 Plan of Treatment Reminders Order Date Submit Date Provider Last Modified By Organization Details Last Modified Time Details Appointments None recorded. Lab None recorded. Referral None recorded. Procedures None recorded. Surgeries None recorded. Imaging None recorded. Medication Orders fluconazole 100 mg tablet 2023 [facility][id number], [address] [place] [address], [id number], 4 14:34:42 Valtrex 500 mg tablet 2023 [facility] #92460, [address] [place] [address], [id number], 4 14:34:45 fluconazole 100 mg tablet 2023 024 [facility] #16510, [address] [place] [address], [id number], 4 12:44:19 Valtrex 500 mg tablet 2023 024 [facility] #92418, [address] [place] [address], [id number], 4 12:44:20 fluconazole 100 mg tablet 2022 023 [facility] #98699, [address] [place], [place], [id number], 3 13:18:34 Valtrex 500 mg tablet 2022 023 [facility] #95565, [address] [place], [place], [id number], 3 13:18:26 fluconazole 100 mg tablet 2022 023 [facility] #84135, [address] [place], [place], [id number], 3 09:37:41 nystatin 100,000 unit/mL oral suspension 2022 023 [facility] #58810, [address] [place], [place], [id number], 3 09:37:46 Patient TargetsNo targets recorded. Patient InstructionsNo instructions recorded. Reason for Referral None Reported. Results Created Date Observation Date Name Description Value Unit Range Abnormal Flag Note LastModifiedBy Organization Detail LastModifiedTime Result Notes None recorded. Medical Equipment None Reported. Medications Name Sig Start Date Stop Date Status Note LastModified by Organization Details LastModified Time fluconazo le 100 mg tablet Take 1 tablet every week by oral route for 28 days. active Not Available Not Available No t Available nystatin 100,000 unit/mL oral suspensio n SHAKE LIQUID AND TAKE 5 ML BY MOUTH FOUR TIMES DAILY FOR 14 DAYS active Not Available Not Available No t Available azithromy ginna 250 mg tablet TAKE 1 TABLET BY MOUTH DAILY active Not Available Not Available No t Available valacyclo vir 1 gram tablet TAKE 1 TABLET BY MOUTH TWICE DAILY active Not Available Not Available No t Available fluconazo le 200 mg tablet TAKE 1 TABLET BY MOUTH EVERY DAY FOR 14 DAYS active Not Available Not Available No t Available ondansetr on HCl 4 mg tablet active Not Available Not Available No t Available prednison e 20 mg tablet TAKE 1 TABLET BY MOUTH EVERY DAY active Not Available Not Available No t Available prednison e 5 mg tablet TAKE 1 TABLET BY MOUTH ONCE DAILY WITH 5MG TABLET TO EQUAL 7.5MG DAILY. active Not Available Not Available No t Available amlodipin e 5 mg tablet TAKE 1 TABLET BY MOUTH EVERY DAY active Not Available Not Available No t Available valacyclo vir 500 mg tablet Take 1 tablet every day by oral route for 30 days. active Not Available Not Available No t Available methotrex ate sodium 25 mg/mL injection solution INJECT 0.6ML SUBCUTAN EOUSLY ONCE PER WEEK DIRECTED active Not Available Not Available No t Available famotidin e 20 mg tablet TAKE 1 TABLET BY MOUTH AT BEDTIME active Not Available Not Available No t Available metoclopr amide 5 mg tablet TAKE 1 TABLET BY MOUTH FOUR TIMES DAILY active Not Available Not Available No t Available prednison e 2.5 mg tablet TAKE 1 TABLET BY MOUTH EVERY DAY WITH 5MG TABLET FOR A TOTAL DOSE ON 7.5MG active Not Available Not Available No t Available pantopraz ole 40 mg tablet,de layed release TAKE 1 TABLET BY MOUTH DAILY active Not Available Not Available No t Available lansopraz ole 30 mg capsule,d elayed release TAKE 1 CAPSULE BY MOUTH TWICE DAILY active Not Available Not Available No t Available levofloxa ginna 500 mg tablet active Not Available Not Available No t Available estradiol 0.01% (0.1 mg/gram) vaginal cream APPLY 1 GRAM VAGINALL Y THREE TIMES WEEKLY active Not Available Not Available No t Available albuterol sulfate HFA 90 mcg/actua tion aerosol inhaler INHALE 2 PUFFS BY MOUTH EVERY 6 HOURS NEEDED FOR COUGH OR SHORTNES S OF BREATH active Not Available Not Available No t Available tobramyci n 0.3 %-dexamet hasone 0.1 % eye drops,susy pension SHAKE LIQUID AND INSTILL 1 DROP IN BOTH EYES THREE TIMES DAILY active Not Available Not Available No t Available methotrex ate sodium (PF) 25 mg/mL injection solution active Not Available Not Available Not Available nitrofura ntoin monohydra te/macroc rystals 100 mg capsule TAKE 1 CAPSULE BY MOUTH TWICE DAILY FOR 7 DAYS active Not Available Not Available No t Available Easy Touch Insulin Syringe 1 mL 31 gauge x 16 USE TO INJECT METHOTRE XATE ONCE WEEKLY active Not Available Not Available No t Available Eliquis 5 mg tablet TAKE 1 TABLET BY MOUTH TWICE DAILY active Not Available Not Available No t Available Eliquis 2.5 mg tablet active Not Available Not Available Not Available First Aid Antibioti c 3.5 mg-400 unit-5,00 0 unit/gram topical ointment apply in affected skin area daily 10/22 completed Duration : 1; VACCINE_ IND: no; SU_FULL_ NAME: Sophie rankin; Not Available Not Available Not Available Vitals Date Recorded Body height Respiratory rate Body temperature Body mass index (BMI) Body weight Systolic blood pressure Diastolic blood pressure Provider Name and Address Organization Details Last Updated DateTime 3 172.72 cm 10 /min 97.7 [degF] 21 kg/m2 56982.7 5 g 120 mm[Hg] 70 mm[Hg] Jessica KLEIN MD [facility] 3 12:57:26 Date Recorded Body height Body mass index (BMI) Body weight Heart rate Body temperature Respiratory rate Oxygen saturation Oxygen saturation in Arterial blood by Pulse oximetry Systolic blood pressure Diastolic blood pressure Provider Name and Address Organization Details Last Updated DateTime 4 172.72 cm 22.4 kg/m2 55458.0 8 g 80 /min 97.3 [degF] 10 /min 95 % 95 % 100 mm[Hg] 72 mm[Hg] Norma KLEIN MD [facility] 4 12:28:48 Date Recorded Body height Heart rate Respiratory rate Body temperature Body mass index (BMI) Body weight Systolic blood pressure Diastolic blood pressure Provider Name and Address Organization Details Last Updated DateTime 4 172.72 cm 87 /min 10 /min 96.5 [degF] 22.2 kg/m2 92930.4 9 g 130 mm[Hg] 86 mm[Hg] Norma KLEIN MD [facility] 4 14:11:45 Social History None recorded. Functional Status None recorded. Mental Status None recorded. Family History Nothing Reported. Medical History No medical history recorded. Gynecological HistoryNo gynecological history recorded. 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 fluconazol e 200,g x1, then 100mg po qd x 21 days. pt to come in if no improvemen t or worsening of sx. if persistent oral lesions, will need to see ENT for eval and biopsy. Fluconazol e 100mg po qw for suppressio n once she completes antigungal tx course. goal is to prevet frequency and severity of infections . avoid antibiotic s. will need suppressio n tx for while immunosupp ressed. nystatin swish and spit as directed. also asked to clean dentures on nystatin swish suspension . 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 continue Fluconazol e 100mg po qw for suppressio n. goal is to prevet frequency and severity of infections . avoid antibiotic s unless strictly needed. avoid ETOH.will need suppressio n tx for while immunosupp ressed; lenght of tx to be determined .nystatin swish and spit as directed PRN. also asked to clean dentures on nystatin swish suspension .Plan of care reviewed with pt and daughterto call w recurrence , concerns or as neededques tions and concerns addressed Recurrent oral herpes simplex infection 923346705 B00.2 oral HSV. recurrent with painfu oral and facial skin sores.Valt melquiades 1 g po bid x 3-5 days for active flareupsVa ltrex 500 mg po qd for suppressio n tx. goal is to decrease frequency and severity. Acute urin josh tract infection 942031458 N39.0 to complete macrobid course for enterococc us faecalis UTIimprove d/resolved sx. 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 goal is to decrease frequency and severity of infections . avoid antibiotic s unless strictly needed. avoid ETOH.will need suppressio n tx for while immunosupp ressed; lenght of tx to be determined .Plan of care reviewed with pt and daughterto call w recurrence , concerns or as neededques tions and concerns addressed Recurrent oral herpes simplex infection 959079098 B00.2 oral HSV. recurrent with painful oral and facial skin sores.Valt melquiades 1 g po bid x 3-5 days for active flareups PRNValtrex 500 mg po qd for suppressio n tx. 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 goal is to decrease frequency and severity of infections . avoid antibiotic s unless strictly needed.oli id ETOH.to call w recurrence as dose would have to be adjusted.q uestions and concerns addressed Recurrent oral herpes simplex infection 809705928 B00.2 oral HSV. recurrent with painful oral and facial skin sores.Valt melquiades 1 g po bid x 3-5 days for active flareups PRNValtrex 500 mg po qd for suppressio n tx. goal is to decrease frequency and severity.h ydration Salmonella infection 302 822153 A02.9 s/p hospitaliz ed and antibiotic tx 03/2024sym ptoms improvedto call if she develops new infection sxWatch fro C diff; sx to watch for reviewed.H ydration Health Concerns Section Related Observation LastModified by Organization Detai ls LastModified Time None Recorded Concern Status LastModified by Organization Details LastModified Time None Recorded Advance Directives Directive None Recorded Payers Encounter Date Sequence Insurance Name Policy Number Policy Nicole Covered Member ID Nicole Member ID Guarantor Name 03/16/2023 1 [employer] (MEDICARE REPLACEMENT/A DVANTAGE - PPO) [id number] Angelita Titar [id number] Angelita Titar 04/09/2023 1 [employer] (MEDICARE REPLACEMENT/A DVANTAGE - PPO) [id number] Angelita Titar [id number] Angelita Titar 04/09/2023 2 [place] [employer] Angelita Titar [id number] Angelita Titar 10/28/2023 1 [employer] (MEDICARE REPLACEMENT/A DVANTAGE - PPO) [id number] Angelita Titar [id number] Angelita Titar 10/28/2023 2 [place] [employer] Angelita Titar [id number] Angelita Titar 04/27/2024 1 [facility] (MEDICARE REPLACEMENT/A DVANTAGE - PPO) [id number] Angelita Titar [id number] Angelita Titar 04/27/2024 2 [place] [employer] Angelita Titar [id number] Angelita Titar Notes Date Note Type Note Provider Name and Address Organization Details Recorded Time 03/16/2023 text/html f/u Recurrent or al candidiasis/thrush/esop hagitis. On Humira. Hx Scleroderma/CREST. unable to comein today due to trannsportation barriers. she is with daughter who helps w visit and trasnlation.last seen t was on qw fluconazole suppression tx. ran out of suppression tx few week ago, and did not call for refills.Has developed sign and sx of recurrent thrush/esophagitis in the last week or so which has worsened.she says she did well with qw fluconazole, with no active flareups, although could feel some minimal discomfort on occassions during the past few months, and sometimes feels like 'nonhealing sores'.no GERD;; no nausea. no fever.no recent antibiotic use.med list reviewed.no allergiesnl liver and kidney function Sophie Klein MD [address] [place] [address], [phone], JENNIFER KLEIN MD [facility] 03/16/2023 09:45:26 04/09/2023 text/html f/u Recurrent or al candidiasis/thrush/esop hagitis. On Humira. Hxstarted fluconazole qd for fungal thrush and is on weekly suppression tx. improved/resolved right now. no sores.while on tx, developed oral HSV flareup. hx oral HSV. was tx w Valtrex 1 g bid for active flare up. has never been on suppression tx. willing to be on suppression tx due to recurrent HSV flare ups w significant pain and spread to mouth and face; no genital manifestationsalso prednisone dose was increased for prescription for Scleroderma/CREST.daugh ter in room helping w translation and careeating well. no trouble swallowing.'no GERD; no nausea. no fever.med list reviewed.no allergiesnl liver and kidney nzhyaixz12/2023 u/a trace leukocytes and few bacteria; u/c enterococcus faecalis: s amp/nitro/vanco UTI. gets two infection per year. on macrodantin. no UTI sx.03/2023 eGFR>93; ALT/AST wnl; TSH nl; glu nlshe will get mammogram and CT scan Sophie Klein MD [address] [place] [address], [phone], JENNIFER KLEIN MD [facility] 04/09/2023 15:22:13 10/28/2023 text/html f/u Recurrent or al candidiasis/thrush/esop hagitis.On metotrexate injection qw, prednisone and Humira Scherodermaon fluconazole qw for fungal thrush suppression tx. no flareups while on fluconazole, so wishes to keep med.on valtrex suppression tx for oral HSV which has also prevented HSV flareups. she wishes to continue for now.daughter in room helping w translation and caremed list reviewed.reports has had recent labs done at rheumatology office, and has been told has nl kidney/liver function.nl liver and kidney /2023 u/a trace leukocytes and few bacteria; u/c enterococcus faecalis: s amp/nitro/vanco UTI. gets two infection per year. on macrodantin. no UTI sx.03/2023 eGFR>93; ALT/AST wnl; TSH nl; glu nl Sophie Klein MD [address] [place], [address], JENNIFER KLEIN MD [facility] 10/29/2023 00:22:43 04/27/2024 text/html f/u Recurrent or al candidiasis/thrush/esop hagitis.has been stable on suppression tx; no recent flareups.On metotrexate injection qw, prednisone and Humira Sclerodermaon fluconazole qw for fungal thrush suppression tx. no flareups while on fluconazoleon valtrex suppression tx for oral HSV which has also prevented HSV flareups.daughter in room helping w translation and carelabd and med list reviewed, and hospital discharge reviewed. was recently hospitalized with Salmonella. tx w IV antibiotic; improved diarrhea and sx. occasional lose stools. no current fever. no n/v. no HSV nor thrush flareup even while she was hospitalized and on antibiotics.eating ok. weight stable 146 lbs. no recent UTI's. no dysuria 03/2023 u/a trace leukocytes and few bacteria; u/c enterococcus faecalis: s amp/nitro/vanco UTI. gets two infection per year. on macrodantin. no UTI sx.03/2023 eGFR>93; ALT/AST wnl; TSH nl; glu nl Sophie Klein MD [address] [place], [address], JENNIFER KLEIN MD [facility] 04/27/2024 15:46:32 OBGyn Episode No OBEpisode recorded.
== END 2024-07-20 10:10 | disposition home or self-care (01) ==
PROVIDERS: PCP Physician Assistant; Visit Provider Surgery Vascular Surgery
DX: I83.12 Varicose veins of left lower extremity with inflammation (principal); I83.11 Varicose veins of right lower extremity with inflammation
CPT/HCPCS: 99214

== ENCOUNTER → 2024-07-20 09:47 | Outpatient (BNVA) | payer MEDICARE, SELFPAY | PROVIDERS: PCP Physician Assistant; Visit Provider Surgery Vascular Surgery | DX: I83.12 Varicose veins of left lower extremity with inflammation (principal); I83.11 Varicose veins of right lower extremity with inflammation | CPT/HCPCS: 99212 ==

== ENCOUNTER 2024-09-01 09:21 | Outpatient (AMB) | payer MEDICARE, SELFPAY ==
--- OUTSIDE RECORDS SUMMARY | 2024-09-01 09:44 | XMS_ITS | Clinical Summary ---
Author Organization [facility] ity Address [address] [place] [address] Care Team Providers Care Automobile Insurance Claim Examiner Name Role Phone Gabriel Oliver Primary Care Provider [phone] Medications famotidine (PEPCID) 20 mg tablet Take 1 tablet (20 mg total) by mouth 1 (one) time each day. at bedtime. 90 tablet 3 5 Active pantoprazole (PROTONIX) 40 mg EC tablet Take 1 tablet (40 mg total) by mouth 1 (one) time each day. 90 tablet 3 5 Active famotidine (PEPCID) 20 mg tablet Take 1 tablet (20 mg total) by mouth 1 (one) time each day. at bedtime. 90 tablet 3 5 08/30/19 25 Discontinu ed(Reorder ) pantoprazole (PROTONIX) 40 mg EC tablet Take 1 tablet (40 mg total) by mouth 1 (one) time each day. 90 tablet 3 5 08/30/19 25 Discontinu ed(Reorder ) Encounters Date Type Department Care Team Description 08/01/2024 Telephone Gastroenterology - [place] 175 [facility] 175 [facility] [address] [place] [address] Alycia Maynard PA medication from Last 3 Months Social History Tobacco [...] Influencers of Health Screening 05/02/2022 Influenza Vaccine (Season Ended) 2025 Breast Cancer Screening 04/20/2025 04/20/2023 RSV Immunization Adult Patie nts (1 - 1-dose 75+ series) 2029 HIB [...] age to complete this topic Meningococcal B Vaccine Aged Out No l onger eligible based on patient's age to complete this topic RSV Immunization Patients Un magi 20 months Aged Out No longer eligible b ased on patient's age to complete this topic Varicella Vaccines Aged Out No longer eligible based on patient's age to complete this topic Procedures Procedure Name Priority Date/Time Associated Diagnosis Comments [facility] SCREENING DIGITAL Routine 04/20/2023 9:16 AM EST Encounter for screening mammogram for malignant neoplasm of breast from Last 3 Months or Most Recently Relevant to Health Maintenance Results * [facility] SCREENING DIGITAL (04/20/2023 9:16 AM EST) Anatomical Region Laterality Modality Mammography 04/16/2023 1:13 PM EST Narrative 04/20/2023 9:16 AM EST [facility] Diagnostic Imaging Department [address] [place] [address] Patient: ??TITAR,INDRA P ?/Age/Sex: 1955 68 - F Unit#: ??[id number] ? Location/Status: ??SPDIMAM/REG CLI ? Mnemonic/Ordering Site: ??DIGSC/SPMAM Ordering Physician: ??GABRIEL OLIVER Nasir Screening Digital - 04/16/23 - 1329 Report Status:Signed EXAM: [facility] Screening Digital EXAM DATE AND TIME: 04/16/2023 1:30 PM HISTORY: ??Annual screening COMPARISON: ??11/30/2019, 11/10/2012 TECHNIQUE: Bilateral digital breast tomosynthesis was performed in the CC and MLO projections. Computer aided detection with [employer] 3D 3.1 was employed. TISSUE DENSITY: b. [...] screening mammogram BILATERAL in 1 year. 3341F, 7014F Dictating Physician: ??CARMELINA MEZA MD Electronically Signed by: ??CARMELINA MEZA MD Dic Date/Time: ??04/20/23913 Sign date/Time: ??04/20/23915 Procedure Note Carmelina Meza MD - 06/29/2023 [facility] Diagnostic Imaging Department [address] [place] [address] Patient: INDRA TATUM /Age/Sex: 1955 - 68 - F Unit#: [id number] Location/Status: SPDIMAM/REG CLI Mnemonic/Ordering Site: [facility] Ordering Physician: GABRIEL OLIVER Nasir Screening Digital - 04/16/23 - 132 Report Status:Signed EXAM: [facility] Screening Digital EXAM DATE AND TIME: 04/16/2023 1:30 PM HISTORY: Annual screening COMPARISON: 11/30/2019, 11/10/2012 TECHNIQUE: Bilateral digital breast tomosynthesis was performed in the CCand MLO projections. Computer aided detection with [employer] AI 3D 3.1was employed. TISSUE DENSITY: b. There [...] MD Dic Date/Time: 04/20/23913 Sign date/Time: 04/20/23915 us Gabriel MOMIN IMG BI PROCEDURES Final Result from Last 3 Months or Most Recently Relevant to Health Maintenance Care Teams Automobile Insurance Claim Examiner Relationship Specialty Start Date End Date Gabriel Oliver PA [address] [place] [address] PCP - General Internal Medicine 10/04/18
--- OUTSIDE RECORDS SUMMARY | 2024-09-01 09:44 | XMS_ITS | Encounter Summary ---
Author Organization [facility] Address [address] [place] [address] Care Team Providers Care Emergency Medcl Emt Name Role Phone Christina Plata Primary Care Provider [phone] Reason for Visit * Reason Onset Date Comments medication 08/01/2024 Encounter Details Date Type Department Care Team ([facility] st Contact Info) Description 08/01/2024 Telephone Gastroenterology - [place] [address] [place] [phone] Alycia Maynard PA [address] [place], [place] [id number] medication Social History Tobacco Use Types Packs/Day Years Used Date Smoking Tobacco: Never Smokeless Tobacco: Never Alcohol Use Standard Drinks/Week Comments Never 0 (1 standard drink = 0.6 oz pur e alcohol) Comments Unknown Sex and Gender Information Value Date Recorded Sex Assigned at Not on file Legal Sex Female 8:20 AM EST Gender Identity Not on file Sexual Orientation Not on file documented as of this encounter Ordered Prescriptions Prescription Sig Dispense Quantity Refills Last Filled Start Date End Date pantoprazole (PROTONIX) 40 mg EC tablet Take 1 tablet (40 mg total) by mouth 1 (one) time each day. 90 tablet 3 08/29/2024 famotidine (PEPCID) 20 mg tablet Take 1 tablet (20 mg total) by mouth 1 (one) time each day. at bedtime. 90 tablet 3 08/29/2024 pantoprazole (PROTONIX) 40 mg EC tablet Take 1 tablet (40 mg total) by mouth 1 (one) time each day. 90 tablet 3 08/01/2024 08/29/2024 famotidine (PEPCID) 20 mg tablet Take 1 tablet (20 mg total) by mouth 1 (one) time each day. at bedtime. 90 tablet 3 08/01/2024 08/29/2024 documented in this encounter Progress Notes * MERRILL Rashid - 08/29/2024 9:35 AM EDT All done send meds. * Laisha Granda - 08/29/2024 8:57 AM EDT Patient calling states famotidine & pantoprazole have not been received by her pharmacy * MERRILL Rashid - 08/01/2024 3:54 PM EDT No problem, I did rx both meds. * Vicenta Rdz MA - 08/01/2024 2:54 PM EDT Edvin - 11/11/2023 Nov- unknown * Laisha Granda - 08/01/2024 11:02 AM EDT Patient calling states famotidine & pantoprazole were refused by provider. Patient is still having heartburn and is wondering if something else can be prescribed to help this. Please advise. documented in this encounter Plan of Treatment Not on file documented as of this encounter Visit Diagnoses Not on filedocumented in this encounter Discontinued Medications Medication Sig Discontinue Reason Start Date End Da te pantoprazole (PROTONIX) 40 mg EC tablet TAKE 1 TABLET BY MOUTH DAILY Reorder 04/30/2024 08/01/2024 famotidine (PEPCID) 20 mg tablet Take 1 tablet (20 mg total) by mouth 1 (one) time each day. at bedtime. Reorder 05/01/2024 08/01/2024 famotidine (PEPCID) 20 mg tablet Take 1 tablet (20 mg total) by mouth 1 (one) time each day. at bedtime. Reorder 08/01/2024 08/29/2024 pantoprazole (PROTONIX) 40 mg EC tablet Take 1 tablet (40 mg total) by mouth 1 (one) time each day. Reorder 08/01/2024 08/29/2024 documented as of this encounter Care Teams Emergency Medcl Emt Relationship Specialty Start Date End Date Christina Plata PA [address] [place] [address] PCP - General Internal Medicine 10/04/18 documented as of this encounter
--- OUTSIDE RECORDS SUMMARY | 2024-09-01 09:44 | XMS_ITS | Clinical Summary ---
Author Organization [facility] Address [address] [place] [address] Care Team Providers Care Senior Control Systems Engineer Name Role Phone Boni Christina YANG Primary Care Provider [phone] Source Comments PLEASE NOTE, if this patient [...] % nasal sprayIndications:Le ft-sided epistaxis Place 1 [place] into the nostril(s) as needed for congestion [...] January 23, 2021 13:50 EDT Encounter info: [id number], [facility] [place], One Time OP, 01/23/2021 - 01/23/2021 * [...] and I agree with this report. WSN: [id number] Ordering Physician: Meg Ibrahim Signature Line Dictated [...] media. Multiplanar reformatted images were obtained. Scanner: [employer] 64 slice VCT Dose reduction technique: ASIR [...] or = 8 mm solid component. Code: 74995, G9637, G9557 Dictating Physician: SAMARA CENTENO MD [...] date/Time: 03/12/16 1523 H/O endoscopy 12/2015 in [facility] lj: GERD with 3 tiny peptic ulcers 02/13/2016 History of Helicobacter infection s/p treatment 01/10/2013 Reflux esophagitis on EGD 09/10/2011 01/10/2013 H/O colonoscopy 08/201101/10/2013 CREST syndrome/scleroderma/polymyositis S/P partial hysterectomy due to fibroid 1995 Resolved Problems Problem Noted Date Diagnosed Date Resolved Date COVID-19 09/06/2019 12/07/2019 2 Overview (12/07/2019): No official testing Immunizations Immunization Administration Dates Next Due Hep B, Adult/Adol [...] Health Maintenance Due Date Last Done Comments Imm-Pneumococcal 65+ (2 of 2 - PPSV23) 06/24/2011 04/29/2011 Bone Density Screening 2019 Imm-DTaP/Tdap/Td (2 - Td or Tdap) 11/11/2021 11/12/2011 Alcohol and Drug Screen 05/24/2024 12/01/19, 06/23/2022, 03/06/2022, Additional history exists Depression Annual Screen 05/24/2024 12/01/2023, 12/22 Medicare Annual Wellness Visit 11/30/2024 0 12/01/2023, 03/06/2022, 04/28/2018, Additional history exists Breast Cancer Screening (Mammogram) 04/16/2025 04/16/2023, 01/03/2015 (Corrie ged by Outside Provider) Falls Prevention 04/26/2025 04/26/2024 (Man aged by Outside Provider) Tobacco Screening 04/26/2025 04/26/2024 Diabetes Screening 04/01/2026 04/01/2023, 1 , 03/30/2019, Additional history exists Lipid Screening 04/01/2026 04/01/2023, 02/21, 03/30/2019 Imm-Hepatitis B Completed 06/01/2012, 11/22, 11/12/2011 Imm-Zoster, Recombinant Completed 03/28/2020, 06/30 Hepatitis C Screening Completed 03/06/2022 [id number] Discontinued Imm-Influenza Discontinued Goals Goal Patient Goal Type Associated Problems Recent Progress Patient-Stated? Author Blood Pressure < 140/90 Blood Pressure Essential hypertension 134/60(2023 9:02 AM EST) No Jacob Webber, PharmD Procedures Procedure Name Priority Date/Time Associated Diagnosis Comments REFERRAL SCANNED DOCUMENT 07/20/2024 3:00 AM EST REFERRAL SCANNED DOCUMENT 07/07/2024 3:00 AM EST REFERRAL SCANNED DOCUMENT 06/08/2024 3:00 AM EST MAMMO DIGITAL SCREEN PRAVEEN [...] Health Maintenance Results * REFERRAL SCANNED DOCUMENT (07/20/2024 3:00 AM EST) Only the most recent of3 resultswithin the time period is included. 07/20/2024 3:00 AM EST us Christina Plata PA-C SCAN REFERRAL Final Result * MAMMO DIGITAL SCREEN PRAVEEN W CAD 3D (04/16/2023 3:00 AM EST) 04/16/2023 3:00 AM EST Christina Plata PA-C IMG MAMMO Edited Resul t - Final [facility] Corporate Office [address], [address] [place] [address], * (ABNORMAL) LIPID PANEL (04/01/2023 10:40 AM EST) CHOLESTEROL, TOTAL 109 <200 mg/dL Embedded Chat HDL CHOLESTEROL 42(L) > OR = 50 mg/dL Embedded Chat TRIGLYCERIDES 93 <150 mg/dL Embedded Chat LDL-CHOLESTEROL 49 99 mg/dL (calc) Embedded Chat Comment: Reference range: <100 Desirable range <100 mg/dL for primary prevention; ?? <70 mg/dL for patients with CHD or diabetic patients with > or = 2 CHD risk factors. LDL-C is now calculated using the Jose De Jesus-Laci calculation, which is a validated novel method providing better accuracy than the Friedewald equation in the estimation of LDL-C. Jose De Jesus TURNER et al. CECIL. 2013;310(19): 6531-0656 (http://education.JusticeBox.[employer]/faq/OID436) CHOL/HDLC RATIO 2.6 <5.0 (calc) Embedded Chat NON-HDL CHOLESTEROL 67 <130 mg/dL (calc) Embedded Chat Comment: For patients with diabetes plus 1 major ASCVD risk factor, treating to a non-HDL-C goal of <100 mg/dL (LDL-C of <70 mg/dL) is considered a therapeutic option. Blood Blood / Unknown 04/01/2023 1 0:40 AM EST 04/01/2023 10:40 AM EST Narrative [facility] - 04/04/2023 5:11 PM EST FASTING:YES us Christina Plata PA-C LAB - BLOOD DRAW Final Resul t [facility] [address] [address], [facility] [address] [place] [address] * (ABNORMAL) COMPREHENSIVE METABOLIC PANEL (04/01/2023 10:40 AM EST) Pathologist [facility] GLUCOSE 93 65 - 99 mg/dL [facility] Comment: ?Fasting reference interval UREA NITROGEN (BUN) 15 7 - 25 mg/dL [facility] CREATININE (blood) 0.58 0.50 - 1.05 mg/dL [facility] EGFR 98 > OR = 60 mL/min/1. 73m2 [facility] BUN/CREATININE RATIO SEE NOTE: [facility] Comment: ?? Not Reported: BUN and Creatinine are within ?? reference range. ? SODIUM 132(L) 135 - 146 mmol/L [facility] POTASSIUM 3.6 3.5 - 5.3 mmol/L [facility] CHLORIDE 99 98 - 110 mmol/L [facility] CARBON DIOXIDE 26 20 - 32 mmol/L [facility] CALCIUM 9.2 8.6 - 10.4 mg/dL [facility] PROTEIN, TOTAL 8.9(H) 6.1 - 8.1 g/dL [facility] ALBUMIN 3.7 3.6 - 5.1 g/dL [facility] GLOBULIN 5.2(H) 1.9 - 3.7 g/dL (calc) [facility] ALBUMIN/GLOBULI N RATIO 0.7(L) 1.0 - 2.5 (calc) [facility] BILIRUBIN, TOTAL 0.5 0.2 - 1.2 mg/dL [facility] ALKALINE PHOSPHATASE 49 37 - 153 U/L [facility] AST 23 10 - 35 U/L [facility] ALT 12 6 - 29 U/L Embedded Chat Blood Blood / Unknown 04/01/2023 1 0:40 AM EST 04/01/2023 10:40 AM EST Narrative [facility] [facility] - 04/04/2023 5:11 PM EST FASTING:YES Christina Plata PA-C LAB - BLOOD DRAW Edited Resu lt - Final Performing Organization Address City/[facility]/ZIP Co de Phone Number [facility] [address] [address], [employer] [address] [place] [address] * HEPATITIS C AB W/RFLX HCV RNA, QT, RT PCR (03/06/2022 9:32 AM EDT) HEPATITIS C ANTIBODY NON-REACT RAVEN NON-REACT RAVEN Embedded Chat SIGNAL TO CUT-OFF 0.36 <1.00 Embedded Chat Comment: HCV antibody was non-reactive. There is no laboratory evidence of HCV infection. In most cases, no further action is required. However, if recent HCV exposure is suspected, a test for HCV RNA (test code 91726) is suggested. For additional information please refer to http://education.[employer]/faq/SAL59u9 (This link is being provided for informational/ educational purposes only.) Blood Blood / Unknown 03/06/2022 9 :32 AM EDT 03/06/2022 9:33 AM EDT Christina Plata PA-C LAB - BLOOD DRAW Edited Resu lt - Final Performing Organization Address City/[facility]/ZIP Co de Phone Number [facility] [address] [address], [employer] [address] [address] from Last 3 Months or Most Recently Relevant to Health Maintenance Insurance [employer] MEDICARE COMPLETE CHO Care Teams Senior Control Systems Engineer Relationship Specialty Start Date End Date Christina Plata PA-C [address] [place] [phone] PCP - General 01/10/13
--- NOTE | 2024-09-01 09:59 | A.OFFVIS_ITS ---
Vital Signs 09/01/24 10:00 Height 5 ft 3 in Weight 141 lb BMI 25.0 Intake Visit Reasons: Left GSV RFA Civil Clerk Required: Yes Civil Clerk Language: Jordanian Accompanied by: Self / Same As Patient Allergies No Known Allergies Allergy (Verified 09/01/24 10:00) [facility] Medical History Arthritis Scleroderma GERD (gastroesophageal reflux disease) Hypertension Paroxysmal A-fib Lumbar disc disease Right lumbar radiculopathy Surgical History History of uterine suspension procedure (~2016) H/O: hysterectomy Social History Alcohol intake: never Patient Tobacco Use Status: Never used Tobacco Physical Exam Vital Signs: BMI result Body Mass Index 25.0 Office Procedures Vascular Office Procedure Details Details: Diagnosis: Varicose veins with inflammation of left leg Procedure: Endovenous radiofrequency ablation of the left great saphenous vein(s) of the lower extremity. Anesthesia: Local infiltration 5 cc, Tumescent 400 cc. Estimated Blood Loss: minimal Specimen: Varicose veins The patient was transferred to the procedure suite and the insufficient saphenous vein was mapped by ultrasound and diagrammed on the overlying skin. The depth and diameter of the vein(s) to be treated was documented. The varicose tributary veins and suitable access sites were identified and mapped as well. The patient was then positioned supine on the procedure table. The affected limb was prepped and draped in the usual sterile fashion. The RF catheter was placed on the sterile field, flushed and wiped down, prepared, and connected by a sterile cable. The patient was placed in supine position and local anesthesia was instilled in the skin overlying the access site. A skin incision was made overlying the identified and mapped great saphenous vein entry site. The vein was accessed using ultrasound guidance and the Seldinger technique, a guide wire was introduced through the needle, which was then exchanged over the guide wire for a 6F sheath, which was secured in place. The guide wire was removed and the sheath was flushed. The RF catheter was placed into the vein through the sheath and preferentially, imaging was used to place the catheter tip just inferior to the superficial epigastric vein to preserve normal physiological flow in that vein. Additionally, it was confirmed by ultrasound guidance that the catheter tip was also placed a minimum of 1.5cm distal to the saphenofemoral junction. After the RF catheter position was verified by ultrasound, tumescent anesthesia was infiltrated, under ultrasound guidance, precisely into the perivenous compartment along the entire length of vein from the entry site to the saphenofemoral junction until a halo of fluid was noted around the vein. The patient was then placed in supine position to further exsanguinate the superficial venous system. After RF catheter position was again confirmed with ultrasound imaging, and under direct external compression along the length of the heating element, RF energy was applied. The vein was segmentally ablated by heating a 8 cm segment and then indexing the catheter forward by 7.5 cm until the treatment length is completed. Device temperature was maintained at 120 plus or minus 5 degrees C with an initial power level of 40W dropping to below 20W for each treatment. Total vein length treated 24 cm Total cycles of RF 4 In addition we noted an anterior saphenous vein. In a similar fashion we placed a 6 [place] sheath. The RF catheter was placed into the vein through the sheath and imaging was can used to confirm the tip was in appropriate position. We then infiltrated the area with tumescent anesthesia under ultrasound guidance into the perivenous compartment along the length of the vein. We noticed a halo of fluid around the vein. We subsequently ablated 8 cm segments and this ablated the treatment length.. Total treatment length was 8 cm total cycles of RF 2 Repeat ultrasound of the saphenous vein was performed, confirming successful treatment. The catheter and sheath were withdrawn and hemostasis established with direct pressure. After assuring hemostasis, the skin incision over the saphenous vein was closed with a bandage and a compression wrap, and/ or graduated compression stocking was applied from the level of the foot to the most proximal level of the thigh. 76793 - Endovenous RF, 1st Vein 74466 - RF Ablation, subsequent vein All charges added?: Procedure code (CPT) selection complete Assessment & Plan Assessment & Plan (1) Varicose veins of left lower extremity with inflammation: Comment: 09/01/2024 - left great saphenous vein radiofrequency ablation Code(s): I83.12 - Varicose veins of left lower extremity with inflammation Category: Medical Plan: See op note Coding Level of Care Code Procedure Only Diagnoses Varicose veins of left lower extremity with inflammation I83.12 CPT Codes Details - Vascular 1: 51854 - Endovenous RF, 1st Vein ([id number]) Details - Vascular 2: 90048 - RF Ablation, subsequent vein ([id number])
[2024-09-01 10:00] VITALS: BMI 25.0
== END 2024-09-01 11:04 | disposition home or self-care (01) ==
LOC: HO.HVS 09:22
PROVIDERS: PCP Physician Assistant; Visit Provider Surgery Vascular Surgery
DX: I83.12 Varicose veins of left lower extremity with inflammation (principal)
CPT/HCPCS: 36475; 36476

== ENCOUNTER → 2024-09-01 09:21 | Outpatient (BNVA) | payer MEDICARE, SELFPAY | PROVIDERS: PCP Physician Assistant; Visit Provider Surgery Vascular Surgery | DX: I83.12 Varicose veins of left lower extremity with inflammation (principal) | CPT/HCPCS: 36475; 36476; J2003; J2004 ==

== ENCOUNTER 2024-09-21 09:49 | Outpatient (AMB) | payer MEDICARE, SELFPAY ==
--- NOTE | 2024-09-21 09:51 | A.OFFVIS_ITS ---
Intake Visit Reasons: 2 week follow up Left GSV RFA 09/01/24 Intake Note: Patient presents for follow up left gsv rfa. Patient has no complaints. Accompanied by: Daughter Allergies No Known Allergies Allergy (Verified 09/21/24 09:53) [facility] 2 week follow up Left GSV RFA 09/01/24: Details: The patient is a 69-year-old female presenting for a follow-up of her left great saphenous vein ablation procedure, performed on 09/01/2024. She had previously undergone a similar procedure on the right great saphenous vein on 07/07/2024. Post-ablation, she reports marked improvement in leg symptoms, including reduced swelling. However, she has lingering localized pain and tender spot with an associated small bump and skin irritation, which is healing. Her report suggests a possible relationship to pre-existing skin irritation typically described as eczema. She continues to have a large left calf cluster. Overall appears to be doing well postprocedure. Now for postprocedure follow-up. [facility] Medical History Arthritis Scleroderma GERD (gastroesophageal reflux disease) Hypertension Paroxysmal A-fib Lumbar disc disease Right lumbar radiculopathy Surgical History History of uterine suspension procedure (~2016) H/O: hysterectomy Social History Alcohol intake: never Patient Tobacco Use Status: Never used Tobacco Review of Systems Const Reports as per HPI ENT Reports no additional complaints Card Denies chest pain, Denies chest pain at rest and Denies chest pain with activity Resp Denies chest congestion and Denies cough GI Reports no additional complaints Musc Details: pain over varicosities, aching of lower extremities, swelling, cramping, heaviness and tiredness, itching Denies abnormal gait Skin/Breast Reports pruritus and Denies wounds Neuro Reports no additional complaints and Denies abnormal gait Psych Denies no additional complaints Physical Exam Const General: cooperative, healthy appearing and comfortable Orientation/consciousness: oriented to person, oriented to place and oriented to time Neck Carotids: no bruits Chest Chest palpation & inspection: normal inspection of the chest and normal palpation of entire chest wall Resp Effort & Inspection: normal respiratory effort and able to speak in complete sentences Cardio Rate: regular rate Heart sounds: S1 normal heart sound present and S2 normal heart sound present Peripheral pulses: Peripheral pulses 2+ throughout GI Inspection: Yes normal to inspection Skin Other: +2 edema, large rope-like varicosities greater than 4 mm large cluster left calf CEAP Classification C4 - skin color changes Ep - Etiology Primary As - superficial veins P - reflux General skin exam: dry skin Neuro General: oriented to person, oriented to place and oriented to time Extrem Right lower extremity: full ROM, normal capillary refill and edema Left lower extremity: full ROM, normal capillary refill and edema Psych Mental Status: mental status grossly normal Assessment & Plan Assessment & Plan (1) Varicose veins of right lower extremity with inflammation: Comment: 07/07/2024 - right great saphenous vein radiofrequency ablation Code(s): I83.11 - Varicose veins of right lower extremity with inflammation Category: Medical Plan: See below (2) Varicose veins of left lower extremity with inflammation: Comment: 09/01/2024 - left great saphenous vein radiofrequency ablation Code(s): I83.12 - Varicose veins of left lower extremity with inflammation Category: Medical Plan: The plan is to reassess the patient's condition after her vacation in for the possible in-office procedure to remove clusters of bulging veins. This minor procedure involves small incisions with local anesthetic to ensure comfort. Currently, I recommend observation and symptom management. Follow-up evaluation will occur in three months, post-vacation. Patient was informed and verbally consented to the use of an ambient scribe for clinic note documentation during this visit. Patient Instructions: - Monitor any changes in symptoms, especially after physical activity. - Return for follow-up evaluation after vacation in . - If pain increases or any new symptoms arise, contact me immediately. - Maintain the current skincare routine for irritation, focusing on moisturizing to alleviate eczema symptoms. - Avoid any activities that may exacerbate symptoms until the next visit. Coding Level of Care Code Est Pt Level 4 (58884) Diagnoses Varicose veins of right lower extremity with inflammation I83.11 Varicose veins of left lower extremity with inflammation I83.12
--- OUTSIDE RECORDS SUMMARY | 2024-09-21 10:56 | XMS_ITS | Data Portability ---
Author Organization JENNIFER DALE MD [facility], Main Office Address [address] [place] [address] Assessment Encounter Date Assessment Date Assessment LastModified by Organization Details LastModified Time 03/16/2023 03/16/2023 Telemedicine. Pt home with daughter. phone/audio. 17 min. [email or web address] Not available 03/16/2023 09:38:05 Plan of Treatment Reminders Order Date Submit Date Provider Last Modified By Organization Details Last Modified Time Details Appointments THRUSH F/U 2024 02:00P Eliot Klein MD Not available Not available Not available Lab None recorded. Referral None recorded. Procedures None recorded. Surgeries None recorded. Imaging None recorded. Medication Orders fluconazo le 100 mg tablet 2023 024 [facility], [address] [place] [address], [id number], 04/27/2024 14:34:42 Valtrex 500 mg tablet 2023 024 [facility], [address] [place] [address], [id number], 04/27/2024 14:34:45 fluconazo le 100 mg tablet 2023 024 [facility] [employer] [facility] #81014, [address] [place] [address], [id number], 10/28/2023 12:44:19 Valtrex 500 mg tablet 2023 024 [facility], [address] [place] [address], [id number], 10/28/2023 12:44:20 fluconazo le 100 mg tablet 2022 023 [facility] #95418, [address], [place], [id number], 04/09/2023 13:18:34 Valtrex 500 mg tablet 2022 023 [facility] #15780, [address], [place], [id number], 04/09/2023 13:18:26 fluconazo le 100 mg tablet 2022 023 [facility] #44744, [address], [place], [id number], 03/16/2023 09:37:41 nystatin 100,000 unit/mL oral suspensio n 2022 023 [facility] #13719, [address], [place], [id number], 03/16/2023 09:37:46 Patient TargetsNo targets recorded. Patient InstructionsNo [...] t Available valacyclo vir 500 mg tablet TAKE 1 TABLET BY MOUTH EVERY DAY 2024 active Not Available Not Available Not Avai lable methotrex ate sodium 25 mg/mL injection solution [...] Insulin Syringe 1 mL 31 gauge x 5/16 USE TO INJECT METHOTRE XATE ONCE WEEKLY [...] cm 10 /min 97.7 [degF] 21 kg/m2 45764.7 5 g 120 mm[Hg] 70 mm[Hg] Jessica KLEIN MD [facility] 3 12:57:26 Date Recorded Body height Body mass index (BMI) Body weight Heart rate Body temperature Respiratory rate Oxygen saturation Oxygen saturation in Arterial blood by Pulse oximetry Systolic blood pressure Diastolic blood pressure Provider Name and Address Organization Details Last Updated DateTime 4 172.72 cm 22.4 kg/m2 46669.0 8 g 80 /min 97.3 [degF] 10 /min 95 % 95 % 100 mm[Hg] 72 mm[Hg] Norma KLEIN MD [facility] 4 12:28:48 Date Recorded Body height Heart rate Respiratory rate Body temperature Body mass index (BMI) Body weight Systolic blood pressure Diastolic blood pressure Provider Name and Address Organization Details Last Updated DateTime 4 172.72 cm 87 /min 10 /min 96.5 [degF] 22.2 kg/m2 74460.4 9 g 130 mm[Hg] 86 mm[Hg] Norma KLEIN MD [facility] 4 14:11:45 Social History [...] 859 Sophie Klein MD Main Office [address] [place] [address] 03/16/2023 09:13:35 03/16/2023 17:18:23 Candidiasis of the esophagus 09766836 B37.81 Recurrent esophageal candidiasi s in setting [...] 1188 Sophie Klein MD Main Office [address] [place] [address] 04/09/2023 12:37:22 04/09/2023 13:27:05 Candidiasis of the esophagus 76689669 B37.81 Recurrent esophageal candidiasi s in setting [...] concerns addressed Recurrent oral herpes simplex infection 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 recurrent with painfu oral and facial skin sores.Valt melquiades 1 g po bid x 3-5 days for active flareupsVa ltrex 500 mg po qd for suppressio n tx. goal is to decrease frequency and severity. Acute urin josh tract infection 660275876 N39.0 to complete macrobid course for enterococc us faecalis UTIimprove d/[place]. [address] Sophie Klein MD Main Office [address] [place] [phone] 10/28/2023 12:18:33 10/28/2023 13:36:03 Candidiasis of the esophagus 05797990 B37.81 Recurrent esophageal candidiasi s in setting [...] concerns addressed Recurrent oral herpes simplex infection 330386780 B00.2 oral HSV. recurrent with painful oral and facial skin sores.Valt melquiades 1 g po bid x 3-5 days for active flareups PRNValtrex 500 mg po qd for suppressio n tx. 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 goal is to decrease frequency and severity of infections . avoid antibiotic s unless strictly needed.oli id ETOH.to call w recurrence as dose would have to be adjusted.q uestions and concerns addressed Recurrent oral herpes simplex infection 573614045 B00.2 oral HSV. recurrent with painful oral and facial skin sores.Valt melquiades 1 g po bid x 3-5 days for active flareups PRNValtrex 500 mg po qd for suppressio n tx. goal is to decrease frequency and severity.h ydration Salmonella infection 302 655462 A02.9 s/p hospitaliz ed and antibiotic tx [...] Nicole Member ID Guarantor Name 03/16/2023 1 [facility] (MEDICARE REPLACEMENT/A DVANTAGE - PPO) [id number] Angelita Titar [id number] Angelita Titar 04/09/2023 1 [facility] (MEDICARE REPLACEMENT/A DVANTAGE - PPO) [id number] Angelita Titar [id number] Angelita Titar 04/09/2023 2 MED[place]: [employer] Angelita Titar [id number] Angelita Titar 10/28/2023 1 [facility] (MEDICARE REPLACEMENT/A DVANTAGE - PPO) [id number] Angelita Titar [id number] Angelita Titar 10/28/2023 2 [place]: [employer] Angelita Titar [id number] Angelita Titar 04/27/2024 1 [facility] (MEDICARE REPLACEMENT/A DVANTAGE - PPO) [id number] Angelita Titar [id number] Angelita Titar 04/27/2024 2 [place]: [employer] Angelita Titar [id number] Angelita Titar Notes Date Note Type Note [...] and kidney function Sophie Klein MD [address] [place] [address], [phone], JENNIFER KLEIN MD [facility] 03/16/2023 09:45:26 04/09/2023 text/html [...] fever.med list reviewed.no allergiesnl liver and kidney zdhseqiw92/2023 u/a trace leukocytes and few bacteria; u/c enterococcus faecalis: s amp/nitro/vanco UTI. gets two infection per year. on macrodantin. no UTI sx.03/2023 eGFR>93; ALT/AST wnl; TSH nl; glu nlshe will get mammogram and CT scan Sophie Klein MD [address] [place] [address], [phone], JENNIFER KLEIN MD [facility] 04/09/2023 15:22:13 10/28/2023 text/html [...] has nl kidney/liver function.nl liver and kidney byseqozb86/2023 u/a trace leukocytes and few bacteria; u/c enterococcus faecalis: s amp/nitro/vanco UTI. gets two infection per year. on macrodantin. no UTI sx.03/2023 eGFR>93; ALT/AST wnl; TSH nl; glu nl Sophie Klein MD [address] [place] [address], [phone], JENNIFER KLEIN MD [facility] 10/29/2023 00:22:43 04/27/2024 text/html [...] TSH nl; glu nl Sophie Klein MD [address] [place] [address], [phone], [place] JENNIFER KLEIN MD [facility] 04/27/2024 15:46:32 OBGyn Episode No OBEpisode recorded.
--- OUTSIDE RECORDS SUMMARY | 2024-09-21 10:56 | XMS_ITS | Clinical Summary ---
Author Organization [facility] Address [address] [place] [address] Care Team Providers Care Technologist Development Name Role Phone Boni Christina YANG Primary Care Provider [phone] Source Comments PLEASE NOTE, if this patient [...] % nasal sprayIndications:Le ft-sided epistaxis Place 1 [place] into the nostril(s) as needed for congestion [...] January 23, 2021 13:50 EDT Encounter info: [id number], [facility] [place]/23/[place] - 01/23/2021 * [...] and I agree with this report. WSN: [id number] Ordering Physician: Meg Ibrahim Signature Line Dictated [...] media. Multiplanar reformatted images were obtained. Scanner: [employer] 64 slice VCT Dose reduction technique: ASIR [...] or = 8 mm solid component. Code: 25358, G9637, G9557 Dictating Physician: SAMARA CENTENO MD [...] date/Time: 03/12/16 1523 H/O endoscopy 12/2015 in [facility] lj: GERD with 3 tiny peptic ulcers [...] 03/28/2020, 06/30 Hepatitis C Screening Completed 03/06/2022 [id number] Discontinued Imm-Influenza Discontinued Goals Goal Patient Goal Type Associated Problems Recent Progress Patient-Stated? Author Blood Pressure < 140/90 Blood Pressure Essential hypertension 134/60(2023 9:02 AM EST) No Jacob Webber, PharmD Procedures Procedure Name Priority Date/Time Associated Diagnosis Comments REFERRAL SCANNED DOCUMENT 09/01/2024 3:00 AM EDT REFERRAL SCANNED DOCUMENT 08/31/2024 3:00 AM EDT REFERRAL SCANNED DOCUMENT 07/20/2024 3:00 AM EST REFERRAL SCANNED DOCUMENT 07/07/2024 3:00 AM EST MAMMO DIGITAL SCREEN PRAVEEN [...] Health Maintenance Results * REFERRAL SCANNED DOCUMENT (09/01/2024 3:00 AM EDT) Only the most recent of4 resultswithin the time period is included. 09/01/2024 3:00 AM EDT us Christina Plata PA-C SCAN REFERRAL Final Result * MAMMO DIGITAL SCREEN PRAVEEN W CAD 3D (04/16/2023 3:00 AM EST) 04/16/2023 3:00 AM EST Christina Plata PA-C IMG MAMMO Edited Resul t - Final [facility] Corporate Office [address], [address] [place] [address], * (ABNORMAL) LIPID PANEL (04/01/2023 10:40 AM EST) CHOLESTEROL, TOTAL 109 <200 mg/dL [facility] HDL CHOLESTEROL 42(L) > OR = 50 mg/dL [facility] TRIGLYCERIDES 93 <150 mg/dL [facility] LDL-CHOLESTEROL 49 99 mg/dL (calc) [facility] Comment: Reference range: <100 Desirable range <100 [...] De Jesus SS et al. CECIL. 2013;310(19): 1633-5215 (http://education.Gift Pinpoint/faq/YXL061) CHOL/HDLC RATIO 2.6 <5.0 (calc) [facility] NON-HDL CHOLESTEROL 67 <130 mg/dL (calc) [facility] Comment: For patients with diabetes plus 1 major ASCVD risk factor, treating to a non-HDL-C goal of <100 mg/dL (LDL-C of <70 mg/dL) is considered a therapeutic option. Blood Blood / Unknown 04/01/2023 1 0:40 AM EST 04/01/2023 10:40 AM EST Narrative [employer] [facility] - 04/04/2023 5:11 PM EST FASTING:YES us Christina Plata PA-C LAB - BLOOD DRAW Final Resul t [facility] [address] [address], [facility] [address] [place] [address] * (ABNORMAL) COMPREHENSIVE METABOLIC PANEL (04/01/2023 10:40 AM EST) GLUCOSE 93 65 - 99 mg/dL [employer] [facility] Comment: ?Fasting reference interval UREA NITROGEN (BUN) 15 7 - 25 mg/dL [facility] CREATININE (blood) 0.58 0.50 - 1.05 mg/dL [facility] EGFR 98 > OR = 60 mL/min/1. 73m2 [facility] [employer] BUN/CREATININE RATIO SEE NOTE: [employer] [facility] Comment: ?? Not Reported: BUN and Creatinine are within ?? reference range. ? SODIUM 132(L) 135 - 146 mmol/L [facility] POTASSIUM 3.6 3.5 - 5.3 mmol/L [facility] CHLORIDE 99 98 - 110 mmol/L [facility] CARBON DIOXIDE 26 20 - 32 mmol/L [facility] CALCIUM 9.2 8.6 - 10.4 mg/dL [facility] PROTEIN, TOTAL 8.9(H) 6.1 - 8.1 g/dL [facility] ALBUMIN 3.7 3.6 - 5.1 g/dL [facility] [employer] GLOBULIN 5.2(H) 1.9 - 3.7 g/dL (calc) [facility] ALBUMIN/GLOBULI N RATIO 0.7(L) 1.0 - 2.5 (calc) [facility] [employer] BILIRUBIN, TOTAL 0.5 0.2 - 1.2 mg/dL [facility] [employer] ALKALINE PHOSPHATASE 49 37 - 153 U/L [facility] AST 23 10 - 35 U/L [facility] ALT 12 6 - 29 U/L [facility] Blood Blood / Unknown 04/01/2023 1 0:40 AM EST 04/01/2023 10:40 AM EST Narrative [facility] [employer] - 04/04/2023 5:11 PM EST FASTING:YES Christina Plata PA-C LAB - BLOOD DRAW Edited Resu lt - Final Performing Organization Address City/[facility]/ZIP Co de Phone Number [employer] [facility] [address] [address], [employer] [address] [address] * HEPATITIS C AB W/RFLX HCV RNA, QT, RT PCR (03/06/2022 9:32 AM EDT) HEPATITIS C ANTIBODY NON-REACT RAVEN NON-REACT RAVEN [facility] SIGNAL TO CUT-OFF 0.36 <1.00 [facility] Comment: HCV antibody was non-reactive. There is no laboratory evidence of HCV infection. In most cases, no further action is required. However, if recent HCV exposure is suspected, a test for HCV RNA (test code 07629) is suggested. For additional information please refer to http://education.Oneflare/faq/PVP52q9 (This link is being provided for informational/ educational purposes only.) Blood Blood / Unknown 03/06/2022 9 :32 AM EDT 03/06/2022 9:33 AM EDT Christina Plata PA-C LAB - BLOOD DRAW Edited Resu lt - Final Performing Organization Address City/[facility]/ZIP Co de Phone Number [facility] [address] [address], [employer] [address],[facility] [place] [address] from Last 3 Months or Most Recently Relevant to Health Maintenance Insurance [employer] MEDICARE COMPLETE CHO Care Teams Technologist Development Relationship Specialty Start Date End Date Christina Plata PA-C [address] [place] [phone] PCP - General 01/10/13
--- OUTSIDE RECORDS SUMMARY | 2024-09-21 10:56 | XMS_ITS | Clinical Summary ---
Author Organization [facility] ity Address [address] [place] [address] Care Team Providers Care Manager System Name Role Phone Gabriel Oliver Primary Care Provider [phone] Medications famotidine (PEPCID) 20 mg tablet Take [...] Care Team Description 08/01/2024 Telephone Gastroenterology - [place] [address] [facility] [address] [facility] [address] [place] [address] Alycia Maynard PA medication from [...] Procedure Name Priority Date/Time Associated Diagnosis Comments [facility] SCREENING DIGITAL Routine 04/20/2023 9:16 AM EST Encounter for screening mammogram for malignant neoplasm of breast from Last 3 Months or Most Recently Relevant to Health Maintenance Results * [facility] SCREENING DIGITAL (04/20/2023 9:16 AM EST) Anatomical Region Laterality Modality Mammography 04/16/2023 1:13 PM EST Narrative 04/20/2023 9:16 AM EST [facility] Diagnostic Imaging Department [address] [place] [address] Patient: ??TITAR,INDRA P ?/Age/Sex: 1955 68 - F Unit#: ??[id number] ? Location/Status: ??SPDIMAM/REG CLI ? Mnemonic/Ordering Site: ??DIGSC/SPMAM Ordering Physician: ??GABRIEL OLIVER Nasir Screening Digital - 04/16/23 - 1329 Report Status:Signed EXAM: [facility] Screening Digital EXAM DATE AND TIME: 04/16/2023 1:30 PM HISTORY: ??Annual screening COMPARISON: ??11/30/2019, 11/10/2012 TECHNIQUE: Bilateral digital breast tomosynthesis was performed in the CC and MLO projections. Computer aided detection with Touch of Classic 3D 3.1 was employed. TISSUE DENSITY: b. [...] screening mammogram BILATERAL in 1 year. 3341F, 7068F Dictating Physician: ??CARMELINA MEZA MD Electronically Signed by: ??CARMELINA MEZA MD Dic Date/Time: ??04/20/23913 Sign date/Time: ??04/20/23915 Procedure Note Carmelina Meza MD - 06/29/2023 [facility] Diagnostic Imaging Department [address] [place] [address] Patient: INDRA TATUM /Age/Sex: 1955 - 68 - F Unit#: [id number] Location/Status: SPDIMAM/REG CLI Mnemonic/Ordering Site: [facility] Ordering Physician: GABRIEL OLIVER Nasir Screening Digital - 04/16/23 - 1325 Report Status:Signed EXAM: [facility] Screening Digital EXAM DATE AND TIME: 04/16/2023 1:30 PM HISTORY: Annual screening COMPARISON: 11/30/2019, 11/10/2012 TECHNIQUE: Bilateral digital breast tomosynthesis was performed in the CCand MLO projections. Computer aided detection with StitchD Electronic Brailler AI 3D 3.1was employed. TISSUE DENSITY: b. [...] Recently Relevant to Health Maintenance Care Teams Manager System Relationship Specialty Start Date End Date Gabriel Oliver PA [address] [place] [address] PCP - General Internal Medicine 10/04/18
== END 2024-09-21 10:13 | disposition home or self-care (01) ==
LOC: HO.HVS 09:50
PROVIDERS: PCP Physician Assistant; Visit Provider Surgery Vascular Surgery
DX: I83.11 Varicose veins of right lower extremity with inflammation (principal); I83.12 Varicose veins of left lower extremity with inflammation
CPT/HCPCS: 99214

== ENCOUNTER → 2024-09-21 09:49 | Outpatient (BNVA) | payer MEDICARE, SELFPAY | PROVIDERS: PCP Physician Assistant; Visit Provider Surgery Vascular Surgery | DX: I83.11 Varicose veins of right lower extremity with inflammation (principal); I83.12 Varicose veins of left lower extremity with inflammation | CPT/HCPCS: 99212 ==

== ENCOUNTER 2025-02-13 13:50 | Outpatient (REF) | payer MEDICARE, SELFPAY ==
--- NOTE | ~2025-02-13 | XR_ITS ---
EXAMINATION: XR CERVICAL SPINE CLINICAL INFORMATION: M54.2 - Cervicalgia COMPARISON: None available. TECHNIQUE: 7 views of the cervical spine, inclusive of flexion and extension views, and bilateral oblique views, were obtained. FINDINGS: Normal lordosis. Minimal right convex scoliosis. No subluxations. No fracture, compression deformity, or suspicious bone lesion. C1-2 articulation and craniocervical junction are intact and aligned. Normal facet alignment. Mild multilevel degenerative facet change. There is mild to moderate degenerative disc change at C6-7. There is otherwise gross preservation of the discs. Flexion and extension views show no evidence of instability. No significant bony neural foraminal narrowing on either side. The pre and paravertebral soft tissues are normal. There are bilateral carotid bulb calcifications. The lung apices are clear. XR/XR cervical spine min 6V IMPRESSION: 1. No acute finding of the cervical spine. Mild spondylosis most significant at C6-7. 2. No subluxations. No evidence of instability on flexion and extension views. Electronically signed by: Brian Bender MD 02/13/2025 03:31 PM EDT
--- NOTE | ~2025-02-13 | XR_ITS ---
EXAMINATION: XR FACIAL BONES CLINICAL INFORMATION: Z91.81 - History of falling COMPARISON: None available. TECHNIQUE: 4 views of the facial bones were obtained. FINDINGS: There are no definitive fractures. The orbits are intact. The nasal bones are intact. The calvarium is intact. No bone lesions. The paranasal sinuses are grossly well pneumatized without air-fluid level or gross opacity. Mastoids appear aerated. Sella is normal in size. There is no soft tissue abnormality. XR/XR facial bones <3V IMPRESSION: Normal radiographs of the maxillofacial bones. Electronically signed by: Brian Bender MD 02/13/2025 03:27 PM EDT
--- OUTSIDE RECORDS SUMMARY | 2025-02-13 17:03 | XMS_ITS | Clinical Summary ---
Author Organization [facility] ity Address [address] [place] [address] Care Team Providers Care Clothing Sales Assistant Name Role Phone Gabriel Oliver Primary Care Provider [phone] Medications famotidine (PEPCID) 20 mg tablet Take 1 tablet (20 mg total) by mouth 1 (one) time each day. at bedtime. 90 tablet 3 08/29/2024 Active pantoprazole (PROTONIX) 40 mg EC tablet Take 1 tablet (40 mg total) by mouth 1 (one) time each day. 90 tablet 3 08/29/2024 Active Social History Tobacco Use Types Packs/Day Years [...] 2) 2004 Colorectal Cancer Screening: Colonoscopy 05/02/2022 Falls Risk Assessment 05/02/2022 Hepatitis C Screening 05/02/2022 Osteoporosis Screening (Bone Density Screening) 05/02/2022 Social Influencers of Health Screening 05/02/2022 Depression Screening 05/24/2024 Influenza Vaccine (#1) 2025 Breast Cancer Screening 04/20/2025 04/20/2023 RSV [...] 1:13 PM EST Narrative 04/20/2023 9:16 AM [facility] Diagnostic Imaging Department [address] [place] [address] Patient: INDRA TATUM Dawson /Age/Sex: 1955 - 68 - F Unit#: [id number] Location/Status: SPDIMAM/REG CLI Mnemonic/Ordering Site: [facility] [place] Ordering Physician: GABRIEL OLIVER [facility] Screening Digital - 04/16/23 - 1329 Report Status:Signed EXAM: [facility] Screening Digital EXAM DATE AND TIME: 04/16/2023 1:30 PM HISTORY: Annual screening COMPARISON: 11/30/2019, 11/10/2012 TECHNIQUE: Bilateral digital breast tomosynthesis was performed in the CC and MLO projections. Computer aided detection with TNC 3D 3.1 was employed. TISSUE DENSITY: b. There are scattered areas of fibroglandular density. FINDINGS: No suspicious masses, grouped microcalcifications, or areas of architectural distortion are seen. The skin and vascularity are unremarkable. IMPRESSION: Stable mammographic appearance of the breasts. No evidence of malignancy is seen. A negative mammogram in the presence of a clinically suspicious palpable abnormality does not preclude the possibility of malignancy or alter the indications for biopsy. BI-RADS: Category 1: Negative RECOMMENDATION(S): 1: Routine screening mammogram BILATERAL in 1 year. 3341F, 7025F Dictating Physician: CARMELINA MEZA MD Electronically Signed by: CARMELINA MEZA MD Dic Date/Time: 04/20/23913 Sign date/Time: 11/28/23 0916 Procedure Note Carmelina Meza MD - 06/29/2023 [facility] Diagnostic Imaging Department [address] [place] [address] Patient: INDRA TATUM Dawson /Age/Sex: 1955 - 68 - F Unit#: [id number] Location/Status: [facility] CLI Mnemonic/Ordering Site: [facility] [place] [facility] Ordering Physician: GABRIEL OLIVER [facility] Screening Digital - 04/16/23 - 1329 Report Status:Signed EXAM: [facility] Screening Digital EXAM DATE AND TIME: 04/16/2023 1:30 PM HISTORY: Annual screening COMPARISON: 11/30/2019, 11/10/2012 TECHNIQUE: Bilateral digital breast tomosynthesis was performed in the CCand MLO projections. Computer aided detection with TNC 3D 3.1was employed. TISSUE DENSITY: b. There [...] screening mammogram BILATERAL in 1 year. 3341F, 7063F Dictating Physician: CARMELINA MEZA MD Electronically Signed by: CARMELINA MEZA MD Dic Date/Time: 04/20/23913 Sign date/Time: 04/20/23915 Gabriel MOMIN IMG BI PROCEDURES Final Result from Last 3 Months or Most Recently Relevant to Health Maintenance Care Teams Clothing Sales Assistant Relationship Specialty Start Date End Date Gabriel Oliver PA [address] [place] [address] PCP - General Internal Medicine 10/04/18
--- OUTSIDE RECORDS SUMMARY | 2025-02-13 17:03 | XMS_ITS | Clinical Summary ---
Author Organization [facility] Address [address] [place] [address] Care Team Providers Care Digital Production Manager Name Role Phone Christina Plata PA-C Primary Care Provider Source Comments PLEASE NOTE, if this patient is a minor, it may be UNLAWFUL to discuss sensitive information that is contained in these records (such as FAMILY PLANNING, MENTAL HEALTH or SUBSTANCE ABUSE) with the minor patient's parent or other person without the patient's specific authorization.[facility] Allergies No known active allergies Medications predniSONE (DELTASONE) 1 mg tabletIndications:C REST syndrome (CMS & HHS-HCC) Take 4 Tabs by mouth once daily. 120 Tab 6 01/11/20 13 Active predniSONE (DELTASONE) 5 mg tabletIndications:C REST syndrome (CMS & HHS-HCC) Take 1 Tab by mouth 2 (two) [...] amLODIPine (NORVASC) 2.5 mg tabletIndications:C REST syndrome (CMS & HHS-HCC) Take 1 Tab by mouth once daily 90 Tab 2 03/30/20 20 Active mupirocin (BACTROBAN) 2 % ointmentIndications :Left-sided epistaxis Apply topically nightly at bedtime 22 g 04/11/20 20 Active sodium chloride (OCEAN) 0.65 % nasal sprayIndications:Le ft-sided epistaxis Place 1 Irwin into the nostril(s) as needed for congestion 44 mL 2 04/11/20 20 Active erythromycin (ROMYCIN) 5 mg/gram (0.5 %) ophthalmic ointment Place 0.5 Inches into both eyes nightly at bedtime 3.5 g 1 07/02/19 21 Active metoprolol succinate (TOPROL-XL) 25 mg 24 hr tabletIndications:P aroxysmal atrial fibrillation ([facility]) Take 1 Tablet by mouth once daily 90 Tablet 2 11/22/19 22 Active miscellaneous medical supply miscIndications:CRE ST syndrome ([facility]) by miscellaneous route once daily Miracle mouthwash [...] amLODIPine (NORVASC) 5 mg tabletIndications:C REST syndrome ([facility]) Take 1 Tablet by mouth once daily 90 Tablet 3 09/10/19 23 Active valACYclovir (VALTREX) 1 gram tabletIndications:H erpes labialis Take 1 Tablet by mouth 2 (two) times daily 60 Tablet 5 03/19/20 23 Active lidocaine (LIDODERM) 5 % patchIndications:Ri ght [...] (ELIQUIS) 5 mg tabIndications:Paro xysmal atrial fibrillation (CMS & HHS-HCC) Take 1 Tablet by mouth 2 (two) times daily Self pay 180 Tablet 1 04/26/20 24 Active amLODIPine (NORVASC) 5 mg tabletIndications:C REST syndrome (CMS & HHS-HCC) Take 1 Tablet by mouth once daily. 90 Tablet 3 11/20/19 25 Active Active Problems Problem Noted Date Diagnosed Date History of candidiasis 06/23/[address] scan of brain 11/17/2021 Atrial fibrillation (HCC-CMS) 09/202111/21/2021 Essential hypertension 06/22/2019 [...] January 23, 2021 13:50 EDT Encounter info: [id number], [facility] [place], One Time OP, 01/23/2021 - 01/23/2021 [...] and I agree with this report. WSN: [id number] Ordering Physician: Meg Ibrahim Signature Line Dictated By: Elliott Motta MD Dictated Date/Time: 01/23/21 1:45 pm Reviewed By: Makeda Nieves MD Signed By: Makeda Nieves MD Signed Date/Time: 01/23/21 1:50 pm Transcribed By: GLADYS Transcribed Date/Time: 01/23/21 11:[address] Chest W/O Contrast This document has an image CT Chest W - 04/19/1974 INDICATION: Pulmonary nodule TECHNIQUE: CT scan of the chest was obtained with the administration of 90 Isovue 370 intravenous contrast media. Multiplanar reformatted images were obtained. Scanner: [employer] 64 slice VCT Dose reduction technique: ASIR [...] or = 8 mm solid component. Code: 60030, G9637, G9557 Dictating Physician: SAMARA CENTENO MD [...] Administration Dates Next Due Hep B, Adult/Adol (UJJRSRI-T-JACNY/RECOMBIVAX-ADULT) 06/01/2012,12/16/2011,11/12/2011 PNEUMOCOCCAL CONJUGATE PCV 13 04/29/2011 PPD 11/16/2011 TDAP 11/12/2011 ZOSTER VACCINE, RECOMBINANT (SHINGRIX) 0,06/30/2018 Social History Tobacco Use Types Packs/Day Years Used Date Smoking Tobacco: Never Smokeless Tobacco: Never Tobacco Cessation:Counseling Given: Not Answered Alcohol Use Standard Drinks/Week Comments No 0 (1 standard drink = 0.6 oz pur e alcohol) Social Connections Answer Date Recorded How often do you feel lonely or isolated from th ose around you? 1 12/01/2023 Financial Resource Strain Answer Date R ecorded Hard to pay for: Food 1 12/01/2023 Stress Answer Date Recorded Do you feel these kinds of stress these days? 1 12/01/2023 Physical Activity Answer Date Recorded Physical Activity 0 01/14/2019 Food Insecurity Answer Date Recorded Hard to pay for: Food 1 12/01/2023 Transportation Needs Answer Date Record ed Hard to pay for: Transportation 1 12/01/2023 Housing Stability Answer Date Recorded Hard to pay for: Rent/Mortgage payment 1 12/01/2023 Safety and Environment Answer Date Herminio rded Safety 0 01/14/2019 Utilities Answer Date Recorded Hard to pay for: Utilities 1 11/30 Employment Answer Date Recorded Stress 0 12/01/2023 [...] 68 06/23/2022 1:28 PM EST Temperature 36.7 C (98 F) 12/01/2023 9:05 AM EDT Respiratory Rate 16 04/26/2024 9:02 AM EST Oxygen Saturation 98% 01/03/2015 10: 37 AM EDT Inhaled Oxygen Concentration - - Weight 65.3 kg (144 lb) 04/26/2024 9:02 AM EST Height 165.1 cm (5' 5 ) 04/26/2024 9:02 AM EST Body Mass Index 23.96 04/26/2024 9:02 AM EST Plan of Treatment Health Maintenance Due Date Last Done Comments Medicare Annual Wellness Visit 1972 Imm-Pneumococcal 50+ (2 of 2 - PPSV23, PCV20, or PCV21) 06/24/2011 04/29/2011 Bone Density Screening 2019 Imm-DTaP/Tdap/Td (2 - Td or Tdap) 11/11/2021 11/12/2011 Alcohol and Drug Screen 05/24/2024 12/01/19, 06/23/2022, 03/06/2022, Additional history exists Depression Annual Screen 05/24/2024 12/01/2023, 12/22 Breast Cancer Screening (Mammogram) 04/16/2025 04/16/2023, 01/03/2015 (Corrie ged by Outside Provider) Falls Prevention 04/26/2025 04/26/2024 (Man aged by Outside Provider) Tobacco Screening 04/26/2025 04/26/2024 Diabetes Screening 04/01/2026 04/01/2023, 1 , 03/30/2019, Additional history exists Lipid Screening 04/01/2026 04/01/2023, 02/21, 03/30/2019 Imm-Hepatitis B Completed 06/01/2012, 11/22, 11/12/2011 Imm-Zoster, Recombinant Completed 03/28/2020, 06/30 Hepatitis C Screening Completed 03/06/2022 [id number] Discontinued Imm-Influenza Discontinued Goals Goal Patient Goal Type Associated Problems Recent Progress Patient-Stated? Author Blood Pressure < 140/90 Blood Pressure Essential hypertension 134/60(2023 9:02 AM EST) No Jacob Webber, PharmD Procedures Procedure Name Priority Date/Time Associated Diagnosis Comments [employer] REPORT 3:00 AM EDT MAMMO DIGITAL SCREEN PRAVEEN W CAD 3D [...] Recently Relevant to Health Maintenance Results * [employer] REPORT (12/06/2024 3:00 AM EDT) 12/06/2024 3:00 AM EDT us Christina Plata PA-C SCAN PROCEDURES Final Result * Screening MAMMO (04/16/2023 3:00 AM EST) 04/16/2023 3:00 AM EST Christina Plata PA-C IMG MAMMO Edited Resul t - Final [facility] Corporate Office [address], [address] [place] [address], * (ABNORMAL) LIPID PANEL (04/01/2023 10:40 AM EST) CHOLESTEROL, TOTAL 109 <200 mg/dL [facility] HDL CHOLESTEROL 42(L) > OR = 50 mg/dL [facility] TRIGLYCERIDES 93 <150 mg/dL [facility] LDL-CHOLESTEROL 49 99 mg/dL (calc) [facility] Comment: Reference range: <100 Desirable range <100 mg/dL for primary prevention; <70 mg/dL for patients with CHD or diabetic patients with > or = 2 CHD risk factors. LDL-C is now calculated using the Jose De Jesus-Laci calculation, which is a validated novel method providing better accuracy than the Friedewald equation in the estimation of LDL-C. Jose De Jesus TURNER et al. CECIL. 2013;310(19): 4796-7280 (http://education.Footnote.[employer] Systems/faq/HTZ844) CHOL/HDLC RATIO 2.6 <5.0 (calc) [facility] NON-HDL CHOLESTEROL 67 <130 mg/dL (calc) [facility] Comment: For patients with diabetes plus 1 major ASCVD risk factor, treating to a non-HDL-C goal of <100 mg/dL (LDL-C of <70 mg/dL) is considered a therapeutic option. Blood Blood / Unknown 04/01/2023 1 0:40 AM EST 04/01/2023 10:40 AM EST Narrative [facility] - 04/04/2023 5:11 PM EST FASTING:YES us Christina Plata PA-C LAB - BLOOD DRAW Final Resul t [facility] [address] [address], [facility] [address] [place] [address] * (ABNORMAL) COMPREHENSIVE METABOLIC PANEL (04/01/2023 10:40 AM EST) GLUCOSE 93 65 - 99 mg/dL [facility] Comment: Fasting reference interval UREA NITROGEN (BUN) 15 7 - 25 mg/dL [facility] CREATININE (blood) 0.58 0.50 - 1.05 mg/dL [facility] EGFR 98 > OR = 60 mL/min/1. 73m2 [facility] BUN/CREATININE RATIO SEE NOTE: [facility] Comment: Not Reported: BUN and Creatinine are within reference range. SODIUM 132(L) 135 - 146 mmol/L [facility] POTASSIUM 3.6 3.5 - 5.3 mmol/L [facility] CHLORIDE 99 98 - 110 mmol/L [facility] CARBON DIOXIDE 26 20 - 32 mmol/L [facility] CALCIUM 9.2 8.6 - 10.4 mg/dL [facility] PROTEIN, TOTAL 8.9(H) 6.1 - 8.1 g/dL [facility] ALBUMIN 3.7 3.6 - 5.1 g/dL [facility] GLOBULIN 5.2(H) 1.9 - 3.7 g/dL (calc) [facility] ALBUMIN/GLOBULI N RATIO 0.7(L) 1.0 - 2.5 (calc) [facility] BILIRUBIN, TOTAL 0.5 0.2 - 1.2 mg/dL [facility] ALKALINE PHOSPHATASE 49 37 - 153 U/L [facility] AST 23 10 - 35 U/L [facility] ALT 12 6 - 29 U/L [facility] Blood Blood / Unknown 04/01/2023 1 0:40 AM EST 04/01/2023 10:40 AM EST Narrative [facility] - 04/04/2023 5:11 PM EST FASTING:YES Christina Plata PA-C LAB - BLOOD DRAW Edited Resu lt - Final Performing Organization Address [facility] Co de Phone Number [employer] [address] [address], [employer] [facility] [address] [place] [address] * HEPATITIS C AB W/RFLX HCV RNA, QT, RT PCR (03/06/2022 9:32 AM EDT) HEPATITIS C ANTIBODY NON-REACT RAVEN NON-REACT RAVEN [facility] SIGNAL TO CUT-OFF 0.36 <1.00 [facility] Comment: HCV antibody was non-reactive. There is no laboratory evidence of HCV infection. In most cases, no further action is required. However, if recent HCV exposure is suspected, a test for HCV RNA (test code 48583) is suggested. For additional information please refer to http://education.[employer] A/S/faq/FVY93w3 (This link is being provided for informational/ educational purposes only.) Blood Blood / Unknown 03/06/2022 9 :32 AM EDT 03/06/2022 9:33 AM EDT Christina Plata PA-C LAB - BLOOD DRAW Edited Resu lt - Final Performing Organization Address [facility] Co de Phone Number [employer] [address] [address], [employer] [facility] [address],[place] [address] from Last 3 Months or Most Recently Relevant to Health Maintenance Insurance [employer] MEDICARE COMPLETE CHO Care Teams Digital Production Manager Relationship Specialty Start Date End Date Christina Plata PA-C [address] [place] [address] PCP - General 01/10/13
== END 2025-02-13 13:51 | disposition home or self-care (01) ==
LOC: HO.XRAY 13:50
PROVIDERS: PCP Physician Assistant; Visit Provider Nurse Practitioner Family
DX: M54.2 Cervicalgia (principal); M47.812 Spondylosis without myelopathy or radiculopathy, cervical region; R51.9 Headache, unspecified; Z91.81 History of falling
CPT/HCPCS: 70140; 72052

== ENCOUNTER → 2025-02-13 13:55 | Outpatient (BNV) | payer MEDICARE, SELFPAY | PROVIDERS: PCP Physician Assistant; Visit Provider Radiology Diagnostic Radiology | DX: M47.812 Spondylosis without myelopathy or radiculopathy, cervical region (principal); S09.93XA Unspecified injury of face, initial encounter | CPT/HCPCS: 70140; 72052 ==

== ENCOUNTER 2025-04-26 10:22 | Outpatient (REF) | payer MEDICARE, SELFPAY ==
--- NOTE | ~2025-04-26 | US_ITS ---
CLINICAL HISTORY: I65.23 - Occlusion and stenosis of bilateral carotid arteries --- Additional Notes or Special Instructions: Recent cervical spine xray showed bilateral carotid bulb calcifications. US bilateral carotid duplex Comparison: None Findings: Mild plaque within the common carotid arteries. Moderate plaque within the moderate. Moderate plaque within the internal carotid arteries . Waveforms are normal morphology. Peak systolic and end-diastolic velocities: Right CCA: 74.5 cm/s Right ICA: 96.6 cm/s Right ICA EDV: 25.9 cm/sec Right systolic ICA/CCA ratio: 0.91 Right ECA: Unremarkable Right vertebral artery flow antegrade. Left CCA: 76.8 cm/s Left ICA: 120 cm/s Left ICA EDV: 29.9 cm/sec Left systolic ICA/CCA ratio: 1.4 Left ECA: Unremarkable Left vertebral artery flow antegrade. Criteria for grading carotid stenosis Stenosis % ICA PSV cm/s ICA/CCA PSV ratio ICA EDV 0-50% <125 <2.0 <40 50-69% 125-230 2.0-4.0 40-100 70% + > 230 >4.0 >100 Impression: 1. Normal carotid velocities, no significant stenosis (0-49% stenosis) This document has been electronically signed by: Tucker Thomas MD on 04/26/2025 13:09:32
--- OUTSIDE RECORDS SUMMARY | 2025-04-26 12:38 | XMS_ITS | Continuity of Care Document ---
Author Organization [facility] MD [facility], Main Office Address [address] [place] [address] Assessment No assessment recorded. Plan of Treatment Reminders Order Date Submit Date Provider Last Modified By Organization Details Last Modified Time Details Appointments THRUSH F/U 2025 02:40P M Francisco Klein MD Not available Not available Not available Lab None recorded. Referral None recorded. Procedures None recorded. Surgeries None recorded. Imaging None recorded. Medication Orders fluconazo le 100 mg tablet 2024 025 [id number], [address] [place] [address], [id number], 01/25/2025 12:54:07 fluconazo le 100 mg tablet 2024 025 [facility] #[id number], [address] [place] [address], [id number], 01/25/2025 12:54:07 Valtrex 500 mg tablet 2024 025 [facility] #[id number], [address] [place] [address], [id number], 01/25/2025 12:54:12 Patient TargetsNo targets recorded. Patient InstructionsNo instructions recorded. Reason for Referral None Reported. Medical Equipment None Reported. Medications Name Sig Start Date Stop Date Status Note LastModified by Organization Details LastModified Time amoxicill in 500 mg capsule TAKE 1 CAPSULE BY MOUTH THREE TIMES DAILY active Not Available Not Available No t Available fluconazo le 100 mg tablet TAKE 1 TABLET BY MOUTH ONCE WEEKLY FOR SUPPRESS ION active Not Available Not Available No t [...] TAKE 1 TABLET BY MOUTH EVERY DAY 04/26 completed Not Available Not Available Not Available prednison e 5 mg tablet TAKE 1 AND 1/2 TABLETS BY MOUTH EVERY DAY active Not Available [...] Not Available Not Available No t Available Valtrex 500 mg tablet Take 1 tablet every day by oral route for 30 days. 2024 active Not Available Not Available Not Avai lable ibuprofen 600 mg tablet TAKE 1 TABLET BY MOUTH THREE TIMES DAILY NEEDED FOR PAIN active Not Available Not Available No t Available levofloxa ginna 500 mg tablet active Not Available Not Available No t Available estradiol 0.01% (0.1 mg/gram) vaginal cream APPLY PEA SIZE VAGINALL Y 3 TIMES A WEEK active Not Available Not Available No t [...] Not Available Not Available No t Available Humira Pen 40 mg/0.8 mL subcutane ous kit active Not Available Not Available Not Available Easy Touch Insulin Syringe 1 mL [...] : 1; VACCINE_ IND: no; SU_FULL_ NAME: Farncisco rankin; Not Available Not Available Not Available Vitals Date Recorded Body height Heart rate Body temperature Body mass index (BMI) Body weight Systolic And Diastolic Provider Name and Address Organization Details Last Updated DateTime 5 172.72 cm 71 /min 96.1 [degF] 22.8 kg/m2 43562.8 6 g 143/73 mm[Hg] Norma Raya [place] - FRANCISCO KLEIN MD [facility] 5 11:55:47 Social History None recorded. Functional Status None recorded. Mental Status None recorded. Family History Nothing Reported. Medical History Condition Response Coronary Artery Disease N Other N Gout N Kidney Stones N Blood Diseases N Hyperthyroidism N Breast Cancer N Blood Transfusion N COPD N Depression N Lung Disease N Hypothyroidism N Defects or Inherited Disease N Developmental or Behavioral Disorders N Breast Problem N Difficulty Swallowing Y Anesthesia Complications N Meniere's disease N Anxiety Disorder N Muscle, Joint, or Bone Problems Y Obesity N Vision or Eye Problems Y Arthritis Y Polyps N Infertility N Mental Disorder N Cancer N Varicosities N Stroke N Endometriosis N Bladder or Kidney Problems N High Cholesterol N Liver Disease N Fibromyalgia Y Headaches N Kidney Disease N Allergies/Hayfever N Heart Problems N Ear or Hearing Problems N Hospitalizations N Thyroid Problems N GI Problems Y ADD/ADHD N Skin Problems N Eating Disorder N Anemia Y MRSA exposure N Constipation N Mental Illness N Ovarian Cancer N Diabetes N Bedwetting N Seizures/Epilepsy N Tuberculosis N AIDS/HIV N Congestive Heart Failure (CHF) N Eczema N Diverticulitis N Abuse/Domestic Violence N Asthma N Reflux/GERD Y Hepatitis N Heart Disease N Pulmonary Embolism N Pre-Eclampsia N Hypertension N Chronic Ear Infections N Osteoporosis Y Chicken Pox N Autism Spectrum Disorder (ASD) N Thrombophilias N Gynecological HistoryNo gynecological history recorded. 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 goal is to decrease frequency and severity of infections . 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 recurrent with painful oral and facial skin sores.Valt melquiades 1 g po bid x 3-5 days for active flareups PRNValtrex 500 mg po qd for suppressio n tx. goal is to decrease frequency and severity.I f still w/no outbreaks, can decrease Valtrex to 250mg daily for suppressio nhydration Health Concerns Section Related Observation LastModified by Organization Detai ls LastModified Time None Recorded Concern Status LastModified by Organization Details LastModified Time None Recorded Payers Encounter Date Sequence Insurance Name Policy Number Policy Nicole Covered Member ID Nicole Member ID Guarantor Name 01/25/2025 1 [facility] (MEDICARE REPLACEMENT/A DVANTAGE - PPO) [id number] Angelita Verma [id number] Angelita Verma 01/25/2025 2 MEDICARE B-[place]: [facility] [email or web address] Angelita Verma [id number] Angelita Verma Notes Date Note Type Note Provider Name and Address Organization Details Recorded Time 01/25/2025 text/html ROS as noted in the HPI f/u Recurrent oral candidiasis/thrush /esophagitis.has been stable on suppression tx;mild fungal thrush flareup no recent flareups.On metotrexate injection qw, prednisone, no longer on Humira Sclerodermaon fluconazole qw for fungal thrush suppression tx.on valtrex suppression tx for oral HSV which has also prevented HSV flareups; she has noticed the need to use acyclovir cream when she feels lip itchiness, but no active HSV flesions;daughter in room helping w translation and careno recent UTI's. no dysuria. Fell recently, dizzy, hit head, no LOC, lac lateral to R eye. Was up in [place]. 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 Has ecchymosis below/around R eye. CT scan was offered, but she declined.Still w/some liver and abd discomfort; still on methotrexate..Some times gets mouth ulcers when taking methotraxate; tries to take high dose folic acid. 11/2024 CBC anemia; ALT/AST wnl; eGFR>9003/2023 u/a trace leukocytes and few bacteria; u/c enterococcus faecalis: s amp/nitro/vanco UTI. gets two infection per year. on macrodantin. no UTI sx. 03/2023 eGFR>93; ALT/AST wnl; TSH nl; glu nl Francisco Klein MD [address] [place] [address], [phone], [place] - FRANCISCO KLEIN MD [facility] 01/25/2025 12:54:06 OBGyn Episode No OBEpisode recorded.
--- OUTSIDE RECORDS SUMMARY | 2025-04-26 12:38 | XMS_ITS | Clinical Summary ---
Author Organization [facility] Address [address] [place] [address] Phone Care Team Providers Care Medical Secretary Name Role Phone Gabriel Oliver Primary Care Provider [phone] Medications famotidine (PEPCID) 20 mg tablet Take 1 tablet (20 mg total) by mouth 1 (one) time each day. at bedtime. 90 tablet 3 08/29/2024 Active pantoprazole (PROTONIX) 40 mg EC tablet Take 1 tablet (40 mg total) by mouth 1 (one) time each day. 90 tablet 3 08/29/2024 Active Encounters Date Type Department Care Team Description 04/05/2025 9:34 AM EST - 04/05/2025 11:59 PM EST Hospital Encounter [facility] Scan [address] [place] [address] Pulmonary nodules Discharge Disposition: Home or Self Care from Last 3 Months Social History Tobacco Use Types Packs/Day Years Used Date Smoking Tobacco: Never Smokeless Tobacco: Never Alcohol Use Standard Drinks/Week Comments Never 0 (1 standard drink = 0.6 oz pur e alcohol) Comments Unknown Sex and Gender Information Value Date Recorded Sex Assigned at Female 03/09/2025 1:41 PM EDT Legal Sex Female 8:20 AM EST Gender [...] Health Maintenance Due Date Last Done Comments Colorectal Cancer Screening: Colonoscopy 1955 [place] Risk Assessment 05/02/2022 Medicare Annual Wellness Visit 05/02/2022 Osteoporosis Screening (Bone Density Screening) 05/02/2022 Social Influencers of Health Screening 05/02/2022 Depression Screening 05/24/2024 COVID-19 Vaccine (2024- season) 2025 Influenza Vaccine (#1) 2025 Breast Cancer Screening 04/20/2025 04/20/2023, 04/16 Hypertension/CHF/CAD Annual BMP Blood Test 02/21/2026 02/21/2025 RSV Immunization Adult Patients (1 - 1-dose 75+ series) 2029 Cholesterol Screening (Lipid Panel) 02/21/2030 02/21/2025, 02/21/2025, 04/01/2023, Additional history exists DTaP,Tdap,and Td Vaccines (3 - Td or Tdap) 02/21/2035 02/21/2025, 11/12/2011 Hepatitis B Vaccines Completed 06/01/2012, 12/16/2011, 11/12/2011 Zoster Vaccines Completed 03/28/2020, 06/30/2018 Hepatitis C Screening Completed 03/06/2022 Pneumococcal Vaccine: 50+ Years Completed 02/21/2025, 04/29/2011 HIB Vaccines Aged Out No longer eligi [...] to complete this topic RSV Immunization Patients Under 20 months Aged Out No longer eligible based on patient's age to complete this topic Varicella Vaccines Aged Out No longer eligible based on patient's age to complete this topic Procedures Procedure Name Priority Date/Time Associated Diagnosis Comments CT CHEST WO CONTRAST Routine 04/05/2025 9:50 AM EST Pulmonary nodules NASIR SCREENING DIGITAL Routine 04/20/2023 9:16 AM EST Encounter for screening mammogram for malignant neoplasm of breast from Last 3 Months or Most Recently Relevant to Health Maintenance Results * CT Chest wo Contrast (04/05/2025 9:50 AM EST) Anatomical Region Laterality Modality Body Computed Tomogra phy 04/12/2025 2:16 PM EST Impressions 04/12/2025 2:58 PM EST Unchanged appearance of the lungs. 1. Unchanged multifocal calcified and noncalcified pulmonary nodules.The largest is a 6 mm nodule in the right lower lobe. 2. Mild mosaic attenuation suggesting air trapping. Mild scarring at the bases. 3. Moderately dilated debris-filled esophagus. -------- FINAL REPORT -------- Dictated By: Tiburcio Conteh Dictated Date: 04/12/2025 14:16 ET Assigned Physician: Tiburcio Conteh Reviewed and Electronically Signed By: Tiburcio Conteh Signed Date: 04/12/2025 14:58 ET Workstation ID: [id number] Transcribed By: Self Edit Transcribed Date: 04/12/2025 14:16 ET Narrative 04/12/2025 2:58 PM EST PROCEDURE: CT of the chest without intravenous contrast. TECHNIQUE: CT of the chest without intravenous contrast administration. Coronal and sagittal reformats and MIP reconstructions were created. Dose length product: 309 mGy-cm. HISTORY: pulmonary nodules COMPARISON: 08/26/2023. FINDINGS: LUNGS/PLEURA: The central airways are clear and normal in caliber. There are stable scattered areas of mosaic attenuation both lungs suggestive of air trapping. Unchanged patchy groundglass opacities at both bases and bandlike opacities in the posterior lateral right lower lobe, likely scarring. Multiple bilateral calcified and noncalcified pulmonary nodules are unchanged. The largest is a 6 mm right lower lobe nodule, series 4 image 168. No pleural effusion or pneumothorax. MEDIASTINUM/CHANDRIKA: There is moderate dilatation of the mid and distal esophagus with a large amount of intraluminal debris. Multiple small mediastinal lymph nodes, more numerous than is typical, but none meet size criteria for lymphadenopathy. These are slightly more prominent on the prior exam. No mediastinal mass or lymphadenopathy. No appreciable hilar lymphadenopathy on limited noncontrast evaluation. VASCULATURE: Normal caliber pulmonary arteries. Moderate atherosclerotic calcifications of the aorta and great vessels. CARDIAC: Normal heart size. Mild coronary artery calcification. CHEST WALL: No axillary or supraclavicular lymphadenopathy. LIMITED ABDOMEN: Calcified granuloma in the liver. BONES: Demineralized. Moderate diffuse degenerative changes of the spine. Stable superior endplate deformity at T6. Soft tissue calcification anterior to the right humeral head which may represent calcific tendinitis of the rotator cuff. Procedure Note Tiburcio Conteh MD - 04/12/2025 PROCEDURE: CT of the chest without intravenous contrast. TECHNIQUE: CT of the chest without intravenous contrast administration.Coronal and sagittal reformats and MIP reconstructions were created. Dose length product: 309 mGy-cm. HISTORY: pulmonary nodules COMPARISON: 08/26/2023. FINDINGS: LUNGS/PLEURA: The central airways are clear and normal in caliber. Thereare stable scattered areas of mosaic attenuation both lungs suggestive ofair trapping. Unchanged patchy groundglass opacities at both bases andbandlike opacities in the posterior lateral right lower lobe, likelyscarring. Multiple bilateral calcified and noncalcified pulmonary nodulesare unchanged. The largest is a 6 mm right lower lobe nodule, series 4image 168. No pleural effusion or pneumothorax. MEDIASTINUM/CHANDRIKA: There is moderate dilatation of the mid and distalesophagus with a large amount of intraluminal debris. Multiple smallmediastinal lymph nodes, more numerous than is typical, but none meet sizecriteria for lymphadenopathy. These are slightly more prominent on theprior exam. No mediastinal mass or lymphadenopathy. No appreciable hilarlymphadenopathy on limited noncontrast evaluation. VASCULATURE: Normal caliber pulmonary arteries. Moderate atheroscleroticcalcifications of the aorta and great vessels. CARDIAC: Normal heart size. Mild coronary artery calcification. CHEST WALL: No axillary or supraclavicular lymphadenopathy. LIMITED ABDOMEN: Calcified granuloma in the liver. BONES: Demineralized. Moderate diffuse degenerative changes of the spine.Stable superior endplate deformity at T6. Soft tissue calcificationanterior to the right humeral head which may represent calcific tendinitisof the rotator cuff. IMPRESSION: Unchanged appearance of the lungs. 1. Unchanged multifocal calcified and noncalcified pulmonary nodules.Thelargest is a 6 mm nodule in the right lower lobe. 2. Mild mosaic attenuation suggesting air trapping. Mild scarring at thebases. 3. Moderately dilated debris-filled esophagus. -------- FINAL REPORT -------- Dictated By: Tiburcio Conteh Dictated Date: 04/12/2025 14:16 ET Assigned Physician: Tiburcio Conteh Reviewed and Electronically Signed By: Tiburcio Conteh Signed Date: 04/12/2025 14:58 ET Workstation ID: [id number] Transcribed By: Self Edit Transcribed Date: 04/12/2025 14:16 ET Gabriel MOMIN IMG CT PROCEDURES Final Result * NASIR SCREENING DIGITAL (04/20/2023 9:16 AM EST) Anatomical Region Laterality Modality Mammography 04/16/2023 1:13 PM EST Narrative 04/20/2023 9:16 AM EST [facility] Diagnostic Imaging Department [address] [place], [place] [id number] Patient: INDRA TATUM /Age/Sex: 1955 - 68 - F Unit#: [id number] Location/Status: SPDIMAM/REG CLI [facility]em[facility] Order[facility] Physician: GABRIEL OLIVER [facility] Screening Digital - 04/16/23 - 1329 Report Status:Signed EXAM: [facility] Screening Digital EXAM DATE AND TIME: 04/16/2023 1:30 PM HISTORY: Annual screening COMPARISON: 11/30/2019, 11/10/2012 TECHNIQUE: Bilateral digital breast tomosynthesis was performed in the CC and MLO projections. Computer aided detection with Bayes Impact 3D 3.1 was employed. TISSUE DENSITY: b. [...] MD Dic Date/Time: 04/20/23913 Sign date/Time: 04/20/23915 Procedure Note Carmelina Meza MD - 06/29/2023 [facility] Diagnostic Imaging Department [address] [place] [address] Patient: INDRA TATUM D.O.B./Age/Sex: 1955 - 68 - F Unit#: [id number] Location/Status: [facility] CLI Mnemonic/Ordering [facility] Ordering Physician: GABRIEL OLIVER [facility] Screening Digital - 04/16/23 - 1329 Report Status:Signed EXAM: [facility] Screening Digital EXAM DATE AND TIME: 04/16/2023 1:30 PM HISTORY: Annual screening COMPARISON: 11/30/2019, 11/10/2012 TECHNIQUE: Bilateral digital breast tomosynthesis was performed in the CCand MLO projections. Computer aided detection with Bayes Impact 3D 3.1was employed. TISSUE DENSITY: b. There [...] to Health Maintenance Insurance [employer] MEDICARE Care Teams Medical Secretary Relationship Specialty Start Date End Date Gabriel Oliver PA [address] [place] [phone] PCP - General Internal Medicine 10/04/18
--- OUTSIDE RECORDS SUMMARY | 2025-04-26 12:39 | XMS_ITS | Data Portability ---
Author Organization JENNIFER DALE MD [facility], Main Office Address [address] [place] [address] Assessment Encounter Date Assessment Date Assessment LastModified [...] fluconazo le 100 mg tablet 2024 025 [id number], [address] [place] [address], [id number], 01/25/2025 12:54:07 fluconazo le 100 mg tablet 2024 025 [facility] #35609, [address] [place] [address], [id number], 01/25/2025 12:54:07 Valtrex 500 mg tablet 2024 025 [facility] #69754, [address] [place] [address], [id number], 01/25/2025 12:54:12 fluconazo le 100 mg tablet 2023 024 [facility] #95610, [address], [place], [id number], 04/27/2024 14:34:42 Valtrex 500 mg tablet 2023 024 [facility] #49527, [address], [place], [id number], 04/27/2024 14:34:45 fluconazo le 100 mg tablet 2023 024 [facility], [address], [place], [id number], 10/28/2023 12:44:19 Valtrex 500 mg tablet 2023 024 [facility] #71132, [address] [place] [address], [id number], 10/28/2023 12:44:20 fluconazo le 100 mg tablet 2022 023 [facility] #30672, [address], [place], [id number], 04/09/2023 13:18:34 Valtrex 500 mg tablet 2022 023 [facility] #40171, [address], [place], [id number], 04/09/2023 13:18:26 fluconazo le 100 mg tablet 2022 023 [facility] #30124, [address], [place], [id number], 03/16/2023 09:37:41 nystatin 100,000 unit/mL oral suspensio n 2022 023 [facility] #07100, [address], [place], [id number], 03/16/2023 09:37:46 Patient TargetsNo targets recorded. Patient [...] : 1; VACCINE_ IND: no; SU_FULL_ NAME: Francisco rankin; Not Available Not Available Not Available Vitals Date Recorded Body height Body mass index (BMI) Body weight Heart rate Body temperature Respiratory rate Oxygen saturation Systolic And Diastolic Provider Name and Address Organization Details Last Updated DateTime 4 172.72 cm 22.4 kg/m2 35920.0 8 g 80 /min 97.3 [degF] 10 /min 95 % 100/72 mm[Hg] Norma BOB 4 12:28:48 Date Recorded Body height Heart rate Body temperature Body mass index (BMI) Body weight Systolic And Diastolic Provider Name and Address Organization Details Last Updated DateTime 5 172.72 cm 71 /min 96.1 [degF] 22.8 kg/m2 05646.8 6 g 143/73 mm[Hg] Norma KLEIN MD [facility] 5 11:55:47 Date Recorded Body height Respiratory rate Body temperature Body mass index (BMI) Body weight Systolic And Diastolic Provider Name and Address Organization Details Last Updated DateTime 3 172.72 cm 10 /min 97.7 [degF] 21 kg/m2 32900.7 5 g 120/70 mm[Hg] Jessica KLEIN MD [facility] 3 12:57:26 Date Recorded Body height Heart rate Respiratory rate Body temperature Body mass index (BMI) Body weight Systolic And Diastolic Provider Name and Address Organization Details Last Updated DateTime 4 172.72 cm 87 /min 10 /min 96.5 [degF] 22.2 kg/m2 63904.4 9 g 130/86 mm[Hg] Norma KLEIN MD [facility] 4 14:11:45 Social History [...] ICD10 Code Diagnosis IMO Codes Diagnosis Note 859 Francisco Klein MD Main Office [address] [place] [address] 03/16/2023 09:13:35 03/16/2023 17:18:23 Candidiasis of esophagus [id number] B37.81 Recurrent esophageal candidiasi s in setting [...] and daughter questions and concerns addressed 1188 Francisco Klein MD Main Office [address] [place] [address] 04/09/2023 12:37:22 04/09/2023 13:27:05 Candidiasis of esophagus 29765981 B37.81 Recurrent esophageal candidiasi s in setting [...] concerns addressed Recurrent oral herpes simplex infection 041348451 B00.2 oral HSV. recurrent with painfu oral and facial skin sores.Valt melquiades 1 g po bid x 3-5 days for active flareupsVa ltrex 500 mg po qd for suppressio n tx. goal is to decrease frequency and severity. Acute urin josh tract infection 591627127 N39.0 to complete macrobid course for enterococc us faecalis UTIimprove d/[place]. [address] Francisco Klein MD Main Office [address] [place] [phone] 10/28/2023 12:18:33 10/28/2023 13:36:03 Candidiasis of esophagus 28290167 B37.81 Recurrent esophageal candidiasi s in setting [...] concerns addressed Recurrent oral herpes simplex infection 638496588 B00.2 oral HSV. recurrent with painful oral and facial skin sores.Valt melquiades 1 g po bid x 3-5 days for active flareups PRNValtrex 500 mg po qd for suppressio n tx. 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 goal is to decrease frequency and severity of infections . avoid antibiotic s unless strictly needed.oli id ETOH.to call w recurrence as dose would have to be adjusted.q uestions and concerns addressed Recurrent oral herpes simplex infection 464560414 B00.2 oral HSV. recurrent with painful oral and facial skin sores.Valt melquiades 1 g po bid x 3-5 days for active flareups PRNValtrex 500 mg po qd for suppressio n tx. goal is to decrease frequency and severity.h ydration Salmonella infection 302 413350 A02.9 s/p hospitaliz ed and antibiotic tx 03/2024sym ptoms improvedto call if she develops new infection sxWatch fro C diff; sx to watch for reviewed.H ydration 93509 Francisco Klein MD Main Office [address] [place] [address], [place] [address] 01/25/2025 11:45:03 01/25/2025 13:39:46 Candidiasis of esophagus 92587066 B37.81 Recurrent esophageal candidiasi s in setting [...] new Rx Recurrent oral herpes simplex infection 456981092 B00.2 oral HSV. recurrent with painful oral [...] Recorded Advance Directives Directive None Recorded Payers Insurance Date Sequence Insurance Name Policy Number Policy Nicole Covered Member ID Nicole Member ID Guarantor Name 01/29/2025 1 [facility] (MEDICARE REPLACEMENT/A DVANTAGE - PPO) [id number] Angelita Verma [id number] Angelita Verma 01/25/2025 2 [place] [employer] Angelita Verma [id number] Angelita Verma 01/25/2025 2 [place] [facility] Angelita Verma [id number] Angelita Verma Notes Date Note Type Note Provider Name and Address Organization Details Recorded Time 03/16/2023 text/html ROS as noted in the HPI f/u Recurrent oral candidiasis/thrush/esop hagitis. On Humira. Hx Scleroderma/CREST. unable [...] list reviewed.no allergiesnl liver and kidney function Francisco Klein MD [address] [place] [address], [phone], [facility] KLEIN MD [facility] 03/16/2023 09:45:26 04/09/2023 text/html ROS as noted in the HPI f/u Recurrent oral candidiasis/thrush/esop hagitis. On Humira. Hxstarted fluconazole qd [...] fever.med list reviewed.no allergiesnl liver and kidney ehmdrzmg60/2023 u/a trace leukocytes and few bacteria; u/c enterococcus faecalis: s amp/nitro/vanco UTI. gets two infection per year. on macrodantin. no UTI sx.03/2023 eGFR>93; ALT/AST wnl; TSH nl; glu nlshe will get mammogram and CT scan Francisco Klein MD [address] [place], [phone], [facility] KLEIN MD [facility] 04/09/2023 15:22:13 10/28/2023 text/html ROS as noted in the HPI f/u Recurrent oral candidiasis/thrush/esop hagitis.On metotrexate injection qw, prednisone and [...] has nl kidney/liver function.nl liver and kidney nbcwnapr47/2023 u/a trace leukocytes and few bacteria; u/c enterococcus faecalis: s amp/nitro/vanco UTI. gets two infection per year. on macrodantin. no UTI sx.03/2023 eGFR>93; ALT/AST wnl; TSH nl; glu nl Francisco Klein MD [address] [place], [phone], [facility] KLEIN MD [facility] 10/29/2023 00:22:43 04/27/2024 text/html ROS as noted in the HPI f/u Recurrent oral candidiasis/thrush/esop hagitis.has been stable on suppression tx; [...] TSH nl; glu nl Francisco Klein MD [address] [place] [address], [phone], JENNIFER KLEIN MD [facility] 04/27/2024 15:46:32 01/25/2025 text/html ROS as noted in the HPI f/u Recurrent oral candidiasis/thrush/esop hagitis.has been stable on suppression tx;mild fungal thrush [...] lateral to R eye. Was up in [place]. 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 Has ecchymosis below/around R eye. CT scan was offered, but she declined.Still w/some liver and abd discomfort; still on methotrexate..Sometimes gets mouth ulcers when taking methotraxate; tries to take high dose folic acid. 11/2024 CBC anemia; ALT/AST wnl; eGFR>9003/2023 u/a trace leukocytes and few bacteria; u/c enterococcus faecalis: s amp/nitro/vanco UTI. gets two infection per year. on macrodantin. no UTI sx. 03/2023 eGFR>93; ALT/AST wnl; TSH nl; glu nl Francisco Klein MD [address] [place] [address], [phone], JENNIFER KLEIN MD [facility] 01/25/2025 12:54:06 OBGyn Episode No OBEpisode recorded.
== END 2025-04-26 10:23 | disposition home or self-care (01) ==
LOC: HO.HMGCX 10:22
PROVIDERS: PCP Physician Assistant; Visit Provider Nurse Practitioner Family
DX: I65.23 Occlusion and stenosis of bilateral carotid arteries (principal); M54.2 Cervicalgia
CPT/HCPCS: 93880

== ENCOUNTER → 2025-04-26 10:37 | Outpatient (BNV) | payer MEDICARE, SELFPAY | PROVIDERS: PCP Physician Assistant; Visit Provider Radiology Diagnostic Radiology | DX: I65.23 Occlusion and stenosis of bilateral carotid arteries (principal) | CPT/HCPCS: 93880 ==